=== PATIENT | female | born 1945 | race Caucasian/White ===

== ENCOUNTER 2020-02-24 01:09 | Emergency (ER) | payer MEDICARE, SELFPAY ==
[2020-02-24 01:21] VITALS: BP 198/101; PULSE 80; RESP 16; O2SAT 99; BMI 25.0
[2020-02-24 03:15] VITALS: BP 132/75; PULSE 71; RESP 16; TEMP 36.7; O2SAT 99
== END 2020-02-24 03:15 | disposition left against medical advice (07) ==
PROVIDERS: Emergency Provider Emergency Medicine; PCP Family Medicine
DX: Z53.21 Procedure and treatment not carried out due to patient leaving prior to being seen by health care provider (principal); S61.214A Laceration without foreign body of right ring finger without damage to nail, initial encounter
CPT/HCPCS: 99281; 99282

== ENCOUNTER 2020-04-15 15:53 | Inpatient (IN) | payer MEDICARE, SELFPAY ==
[2020-04-15] VITALS (12 sets, daily range): BP systolic 157–179; BP diastolic 71–84; PULSE 65–83; RESP 16–20; TEMP 36.1–37.5; O2SAT 92–99; BMI 25.0; BMI 24.8
--- NOTE | 2020-04-15 16:15 | XR_ITS ---
PROCEDURE: XR HIP LT 2-3V W/PELVIS CLINICAL INDICATION: fall, pain COMPARISON: CT CT HIP LT WO CON from 04/15/2020 FINDINGS: There is an intertrochanteric left hip fracture with mild impaction of the fracture fragments and mild coxa varum. No evidence of dislocation. IMPRESSION: Intertrochanteric left hip fracture with coxa varum Dictated b Ayaan Sun MD 04/15/2020 22:45 Ayaan Sun MD in [facility] 04/15/2020 22:45
--- NOTE | 2020-04-15 16:15 | PC.NURSE ---
rad notified of xray order, spoke with geoff
[2020-04-15 16:25] LABS: Chloride 105 mmol/L (98-107); Potassium 3.7 mmoL/L (3.5-5.1); Sodium 142 mmol/L (136-145)
[2020-04-15 16:28] LABS: Alanine Aminotransferase 20 U/L (12-78); Albumin Level 4.3 g/dl (3.5-5.0); Albumin/Globulin Ratio 1.4 (1.1-1.8); Alkaline Phosphatase 85 U/L (38-126); Anion Gap 14.7 mEq/L (5-15); Aspartate Amino Transferase 27 U/L (14-36); Bilirubin,Total 0.7 mg/dl (0.2-1.3); Blood Urea Nitrogen 11 mg/dl (7-17); Calcium 10.6 mg/dl (8.4-10.2); Carbon Dioxide 26 mmol/L (22.0-30.0); Creatinine Clearance Estimated 57 mL/min (50-200); Estimated Glomerular Filt Rate 98 ml/min (>60); GFR (African American) 119 ML/MIN (>60); Globulin 3.1 g/dL (1.3-3.2); Glucose 130 mg/dl (74-100); Total Protein,Serum 7.4 g/dl (6.3-8.2)
[2020-04-15 16:33] LABS: Basophils % 0.5 % (0.1-2.0); Eosinophils # 0.1 K/mm3 (0.0-0.4); Eosinophils % 2.1 % (0.1-12.0); Hematocrit 43.6 % (37.0-47.0); Hemoglobin 15.7 g/dL (12.2-16.2); Mean Corpuscular Hemoglobin 33.2 pg (27.0-31.2); Mean Corpuscular Volume 92.2 fl (81-99); Monocytes # 0.4 K/mm3 (0.1-1.0); Monocytes % 6.2 % (1.7-9.3); Neutrophils # 4.2 K/mm3 (1.8-7.8); Neutrophils % 74.2 % (37.0-80.0); Platelet Count 199 K/mm3 (142-424); Red Blood Count 4.72 M/mm3 (4.20-5.40); Red Cell Distribution Width 12.7 % (11.5-17.5); White Blood Count 5.6 K/mm3 (4.8-10.8)
--- NOTE | 2020-04-15 16:36 | PC.NURSE ---
Addendum entered by Melany Barton, EMT 04/15/20 16:38: Pt to rad Original Note: rad at BS for portable xray
--- NOTE | 2020-04-15 16:51 | PC.NURSE ---
Pt returned from rad
--- NOTE | 2020-04-15 17:11 | CT_ITS ---
PROCEDURE: CT HIP LT WO CON CLINICAL HISTORY: fall, hip pain Posttraumatic pain COMPARISON: No exams were available for comparison TECHNIQUE: Axial images obtained with sagittal and coronal reformats. All CT scans at the facility use one or more dose reduction, viz: automated exposure control, ma/kV adjustment per patient size (including targeted exams where dose is matched to indication, i.e. head), or iterative reconstruction technique. FINDINGS: There is a left comminuted intertrochanteric fracture with 10 mm impaction along the medial margin with moderate varus angulation. There is mild comminuted extension fracture to the greater trochanter with 5 mm displacement of a 10 mm posterior cortical fragment. The femoral head is located. There is diverticulosis of the sigmoid colon. IMPRESSION: Intertrochanteric fracture of the left proximal femur as described above. Dictated b Ayaan Sun MD 04/16/2020 07:05 Ayaan Sun MD in [facility] 04/16/2020 07:05
--- NOTE | 2020-04-15 17:11 | PC.NURSE ---
ER gave verbal order for CT of L hip, notified rad of new orders on pt
--- NOTE | 2020-04-15 17:26 | PC.NURSE ---
Pt to rad by rishabh
--- NOTE | 2020-04-15 17:57 | HMH.EDFALL ---
ED Disposition Clinical Impression: Hip fracture, Intertrochanteric fracture of left hip Disposition: Admitted as Observation Condition on Discharge: Good Instructions: How to Prevent Falls Referrals: Charli Olivares MD [Primary Care Provider] - - Critical Care Critical Care Time: No Attestation: On 04/15/20, the high probability of a clinically significant, sudden or life threatening deterioration of the following system(s) required my full and direct attention, intervention and personal management. The time I documented below is in addition to time spent performing reported procedures but includes the following listed in this critical care notation. Medical Decision Making - Medical Records Medical records reviewed: Yes: I reviewed the patient's medical records. - Aldo Inquiry Pt receiving controlled substance: No Vital Signs: 04/15/20 15:53 04/15/20 17:03 04/15/20 17:58 Temperature 99.5 F Temperature Source Oral Pulse Rate [Left Radial] 83 67 65 Respiratory Rate 20 Blood Pressure [Left Arm] 179/83 H 170/83 H 157/73 H Blood Pressure Mean [Left Arm] 115 112 101 Blood Pressure Source [Left Arm] Automatic Cuff Automatic Cuff Automatic Cuff Blood Pressure Position [Left Arm] Sitting Sitting Sitting 02 Sat by Pulse Oximetry 99 98 97 Oxygen Delivery Method Room Air Room Air Nasal Cannula Oxygen Flow Rate (LPM) 2 04/15/20 18:00 Temperature Temperature Source Pulse Rate [Left Radial] Respiratory Rate Blood Pressure [Left Arm] Blood Pressure Mean [Left Arm] Blood Pressure Source [Left Arm] Blood Pressure Position [Left Arm] 02 Sat by Pulse Oximetry 97 Oxygen Delivery Method Nasal Cannula Oxygen Flow Rate (LPM) 2 - Lab Data Lab results reviewed: Yes: I reviewed the patient's lab results. Lab Results 04/15/20 16:05: WBC 5.6, RBC 4.72, Hgb 15.7, Hct 43.6, MCV 92.2, MCH 33.2 H, MCHC 36.0 H, RDW 12.7, Plt Count 199, MPV 9.0, Neut % (Auto) 74.2, Lymph % (Auto) 17.0, Page % (Auto) 6.2, Eos % (Auto) 2.1, Baso % (Auto) 0.5, Neut # (Auto) 4.2, Lymph # (Auto) 1.0, Page # (Auto) 0.4, Eos # (Auto) 0.1, Baso # (Auto) 0.0 04/15/20 16:05: Sodium 142, Potassium 3.7, Chloride 105, Carbon Dioxide 26, Anion Gap 14.7, BUN 11, Creatinine 0.60, Estimated Creat Clear 57, Estimated GFR 98, Est GFR ( Amer) 119, Glucose 130 H, Calcium 10.6 H, Total Bilirubin 0.7, AST 27, ALT 20, Alkaline Phosphatase 85, Total Protein 7.4, Albumin 4.3, Globulin 3.1, Albumin/Globulin Ratio 1.4 Result diagrams: 04/15/20 16:05 04/15/20 16:05 Orders (Tests/Meds): ED MEDICATIONS Generic Name Dose Route Start Last Admin Trade Name Freq PRN Reason Stop Dose Admin Sodium Chloride 1,000 mls @ 999 mls/hr 04/15/20 16:15 04/15/20 16:16 Sod Chlor 0.9% 1000ml Bag IV 04/15/20 17:15 999 mls/hr .Q1H1M ZOHRA Administration Sodium Chloride 10 ml 04/15/20 17:21 04/15/20 17:29 Sodium Chloride 0.9% 10ml Vial IV 05/15/20 17:20 10 ml NEEDED PRN Administration to Dilute Lorazepam inj Discontinued Medications Generic Name Dose Route Start Last Admin Trade Name Freq PRN Reason Stop Dose Admin Hydromorphone HCl 1 mg 04/15/20 17:21 04/15/20 17:28 Dilaudid 2mg/Ml Syringe IV 04/15/20 17:22 1 mg ONCE ONE Administration Lorazepam 1 mg 04/15/20 17:21 04/15/20 17:28 Ativan 2mg/Ml Vial IV 04/15/20 17:22 1 mg ONCE ONE Administration Morphine Sulfate 4 mg 04/15/20 16:14 04/15/20 16:16 Morphine 4mg/Ml Syringe IV 04/15/20 16:15 4 mg ONCE ONE Administration Ondansetron HCl 4 mg 04/15/20 16:14 04/15/20 16:16 Zofran 4mg/2ml Vial IV 04/15/20 16:15 4 mg ONCE ONE Administration ORDERS Category Date Time Status CT hip LT wo con Stat Cat Scan 04/15/20 17:11 Taken XR hip LT 2-3V w/pelvis Stat Exams 04/15/20 16:15 Taken Full Resp Panel (COVID)(INPT) Routine Lab 04/15/20 18:03 Ordered Rapid Coronavirus-19 IgG/IgM Stat Lab 04/15/20 18:43 Ordered - Radiology
--- NOTE | 2020-04-15 17:59 | PC.NURSE ---
pt returned from rad.
--- NOTE | 2020-04-15 18:03 | PC.NURSE ---
ER gave verbal order for inpt covid test in anticipation of admission
--- NOTE | 2020-04-15 18:09 | PC.NURSE ---
notified lab of COVID test, stated they will come down to swab pt once she is for sure being admitted. notified ER MD, states he is waiting on CT report and then he will call to get pt admitted
--- NOTE | 2020-04-15 18:23 | PC.NURSE ---
pipe cleaning machine operator paging dr. amos
--- NOTE | 2020-04-15 18:26 | PC.NURSE ---
DENNIS APPLE speaking with Dr. Gale
--- NOTE | 2020-04-15 18:27 | PC.NURSE ---
folded towel machine operator paging Dr. Bajwa who is feed inspection supervisor for Dr. Olivares
--- NOTE | 2020-04-15 18:36 | PC.NURSE ---
1829- lab at to swab pt nose for covid test, per lab staff pt is refusing the nasal swab entered room to speak with pt about covid test pt states I don't want that thing in my nose . Pt continues to refuse covid nasal swab. notified ER , ER entered room to speak with pt, pt continues to refuse nasal swab. contacted tank house operator helper to notify her of pt refusing test, states she will contact [facility]. [phone]-tank house operator helper calls back states [facility] states to do IGG/IGM testing on pt and to inform pt that she must wear a mask at all times while in the facility.
--- NOTE | 2020-04-15 18:36 | PC.NURSE ---
DENNIS APPLE speaking with Dr. Bajwa who is insulation supervisor for Dr Olivares
--- NOTE | 2020-04-15 18:42 | PC.NURSE ---
housekeeper cleaning cooking gave bed assignment to room 202
--- NOTE | 2020-04-15 18:57 | PC.NURSE ---
pt informed of information from administration about covid testing, pt will not at this time agree to either testing. Pt was on the phone with pts daughter who is in the lobby. I spoke with pt daughter on the phone and explained the testing procedure and the information r/t testing from administration. Pt went out to switch out with pts daughter. Pt will not consent to either covid test at this time. Notified lab.
--- NOTE | 2020-04-15 19:02 | PC.NURSE ---
Pt's daughter at bedside at this time.
--- NOTE | 2020-04-15 19:03 | PC.NURSE ---
pt daughter at and requesting to speak with pt alone
--- NOTE | 2020-04-15 19:08 | PC.NURSE ---
shift change report given to gerardorn
--- NOTE | 2020-04-15 19:11 | PC.NURSE ---
called roundhouse supervisor and advised wht was going on. house called back and advised that since she had already gave us consent for treatment including blood work to go a head and run the igg/igm test per Radha Mazariegos.
--- NOTE | 2020-04-15 19:20 | PC.NURSE ---
Nurys and modesto spoke to patient. she finally consented to to covid nasal swab. called lab and they are coming down to get it.
[2020-04-15 19:32] LABS: Adenovirus,PCR Not Detected (NotDetected); Bordetella Pertussis Not Detected (NotDetected); Chlamydophila Pneumoniae, PCR Not Detected (NotDetected); Coronavirus 19, PCR Not Detected (NotDetected); Coronavirus 229E Not Detected (NotDetected); Coronavirus NL63 Not Detected (NotDetected); Coronavirus OC43 Not Detected (NotDetected); Coronovirus HKU1,PCR Not Detected (NotDetected); Human Metapneumovirus Not Detected (NotDetected); Influenza A, PCR Not Detected (NotDetected); Influenza AH1, 2009 Not Detected (NotDetected); Influenza AH1, PCR Not Detected (NotDetected); Influenza AH3,PCR Not Detected (NotDetected); Influenza B, PCR Not Detected (NotDetected); Mycoplasma Pneumoniae, PCR Not Detected (NotDetected); Parainfluenza 1, PCR Not Detected (NotDetected); Parainfluenza 2, PCR Not Detected (NotDetected); Parainfluenza 3, PCR Not Detected (NotDetected); Parainfluenza 4, PCR Not Detected (NotDetected); Respiratory Syncytial Virus Not Detected (NotDetected); Rhinovirus/Enterovirus Not Detected (NotDetected)
[2020-04-15 19:40] LABS: Coronavirus 19 IgG Antibody Negative (Negative); Coronavirus 19 IgM Antibody Negative (Negative)
--- NOTE | 2020-04-15 21:08 | PC.NURSE ---
pt is taken to the floor at this time via stretcher.
--- NOTE | 2020-04-15 21:09 | PC.NURSE ---
patient up to floor via stretcher.
[2020-04-16] VITALS (22 sets, daily range): BP systolic 109–169; BP diastolic 43–78; PULSE 55–76; RESP 13–29; TEMP 36.6–43; O2SAT 92–98
--- NOTE | 2020-04-16 02:53 | PC.NURSE ---
A&OX4. PT HAS TOLERATED ROOM AIR WELL THROUGHOUT SHIFT. RESPIRATIONS REGULAR AND UNLABORED. LUNG SOUNDS BILATERALLY CLEAR. NO COUGH NOTED. NO EDEMA NOTED. +2 PULSES NOTED THROUGHOUT. HAND CRITICAL CARE CNS EQUAL. PT HAS REMAINED NPO SINCE MIDNIGHT. ACTIVE BOWEL SOUNDS HEARD IN ALL 4 QUADRANTS. SOFT AND NONTENDER ABDOMEN. NO BM THUS FAR. NO REPORTS OF NAUSEA OR PAIN THUS FAR. PT SHIFTS INDEPENDENTLY IN BED. PT IS RESTING IN BED AT THIS TIME. CALL LIGHT WITHIN REACH. BED IN LOWEST POSITION. VSS. NO CONCERNS AT THIS TIME. WILL CONTINUE TO MONITOR.
--- NOTE | 2020-04-16 06:38 | PC.NURSE ---
WHEN PT FIRST GOT TO THE FLOOR, HER ATORVASTATIN WAS DUE. WENT TO ADMINISTER MED AND PT STATED SHE TAKES HER ATORVASTATIN AND BLOOD PRESSURE MEDICINE TOGETHER ALWAYS AND WOULDN'T TAKE ONE WITHOUT THE OTHER. SHE ALSO STATED SHE THOUGHT SHE HAD ALREADY TAKEN HER ATORVASTATIN. I EXPLAINED TO THE PT THAT MEDICATIONS MAY BE ORDERED A LITTLE DIFFERENTLY HERE THAN WHAT SHE'S USE TO AT HOME, BUT TO DISCUSS IT WITH PHARMACY AND HER MD WHEN THEY CAME AROUND THIS AM. I ALSO EXPLAINED EVERYTHING ADMINISTERED TO HER WHILE UNDER OUR CARE IS SCANNED OFF IN THE NOV. I REASSURED HER THAT IT HADN'T BEEN GIVEN AND SO DID HER DAUGHTER. AFTER A FEW MINUTES OF THINKING ABOUT EVERYTHING, PT WAS AGREEABLE AND TOOK THE MEDICATION. PT TOLERATED WELL. PT STATED SHE NEEDED TO USE THE RESTROOM AND AGREED TO TRY A PURWICK TO TRY TO KEEP FROM MOVING SO MUCH AND INCREASING HER PAIN. CLEAR YELLOW URINE NOTED IN SUCTION CANISTER WITH NO KINKS. PT STATED SHE JUST COULDN'T GO COMPLETELY SO; WE OFFERED TO TRY THE BEDPAN. PT WAS SUCCESSFUL AND TOLERATED IT WELL. ROUNDED ON PT EVERY 2 HOURS. PT RESTED WELL UNTIL LATER IN THE AM. PT DIDN'T REPORT ANY PAIN UNTIL AROUND 5:30. PT STATES NO PAIN EXCEPT WHEN MOVING. STATING IT WAS TOLERABLE AND SHE DIDN'T WANT ANYTHING AT THIS TIME. I ENCOURAGED HER TO RING OUT IF SHE CHANGED HER MIND AND I WOULD BE BACK TO CHECK ON HER PERIODICALLY. I OFFERED TO ADJUST THE PATIENT SEVERAL TIMES THROUGHOUT THE SHIFT TO TRY TO HELP MAKE HER A LITTLE MORE COMFORTABLE. SHE AGREED SEVERAL TIMES, BUT NOTHING SEEMED TO HELP MUCH. DAUGHTER AT BEDSIDE NOW.
--- NOTE | 2020-04-16 07:37 | HMH.PHAVTE ---
[facility] Pharmacy VTE Monitoring - Patient Demographics Admission date: 04/15/20 Report Date: 04/16/20 Time: 07:37 Allergies/Adverse Reactions: Patient Allergies benazepril [BENAZEPRIL] Allergy (Unknown, Verified 04/15/20 17:22) angioedema Height: 1.7 m Weight: 71.894 kg Patient Problems: Current Active Problems Hip fracture (Acute) Intertrochanteric fracture of left hip (Acute) - VTE Risk Labs: VTE Related Lab Results Hgb 15.7 g/dL (12.2-16.2) 04/15/20 16:05 Hct 43.6 % (37.0-47.0) 04/15/20 16:05 Plt Count 199 K/mm3 (142-424) 04/15/20 16:05 BUN 11 mg/dl (7-17) 04/15/20 16:05 Creatinine 0.60 mg/dl (0.52-1.04) 04/15/20 16:05 Estimated Creat Clear 57 mL/min (50-200) 04/15/20 16:05 Was VTE Risk Assessment Performed: Yes VTE Score: 2 VTE Risk Level: Very Low Risk - Prophylaxis VTE Prophylaxis Ordered?: Yes Types of VTE Prophylaxis: TEDS Knee High Location of Applied Device: Bilateral Lower Extremeties - VTE Diagnosis Confirmed Treatment or plan recommended: Continue Current Treatment
--- NOTE | 2020-04-16 08:08 | XR_ITS ---
PROCEDURE: XR CHEST PORTABLE CLINICAL HISTORY: preop COMPARISON: CR CXR1 CHEST-PORTABLE from 02/04/2016 FINDINGS: The cardiomediastinal silhouette and pulmonary vascularity are within normal limits. The lungs are clear without infiltrates, suspicious nodules, or pleural effusions. There may be minimal discoid atelectasis at the left costophrenic angle. No acute bony abnormalities. There is minor diffuse dextroscoliotic curvature of the lower thoracic spine. IMPRESSION: Question minimal left basilar atelectasis otherwise no acute pathology identified Dictated Dr. Truman Mariscal MD 04/16/2020 08:43 Dr. Truman Vuong MD in [place] 04/16/2020 08:43
--- NOTE | 2020-04-16 08:09 | HMH.HP ---
*Admission Date: 04/15/20 <Isatu Sims 04/16/20 08:25> *Chief complaint: Left hip fracture after a fall <Isatu Sims 04/16/20 08:25> *History of present illness: Ms Venegas is a 74 year old male with a history of hypertension, hypercholesteremia, and arthritis who presented to [facility] emergency room with hip pain secondary to a fall. She states she walked into her house from the garden down a step when her left leg gave way resulting in a fall. She landed on her left side and then complained of left severe Hip pain. Her family was present and had her brought to [facility] via EMS. She continued with the left hip and groin pain. With evaluation in the emergency room she was found to have an entero-trochanteric fracture of the left proximal femur. She received a liter of IV fluids, and hydromorphine, lorazepam, and morphine, for her pain. She was then admitted after consultation with Dr. Jj for management of her hip fracture. This a.m. patient continues to have left hip pain when she moves. She states she did sleep some. EKG and chest x-ray have been ordered for preop eval. <Isatu Sims 04/16/20 08:25> [facility] History Medical History: Reports:: Hyperlipidemia, Hypertension Denies:: Cancer, Diabetes Mellitus Type 1, Diabetes Mellitus Type 2, Internal Pacemaker, MRSA <Isatu Sims 04/16/20 08:25> *Have you ever received a pneumonia vaccine?: No <Isatu Sims 04/16/20 08:25> *Have you received a flu vaccine this season?: No <Isatu Sims 04/16/20 08:25> Other Medical History: Reports: Arthritis <Isatu Sims 04/16/20 08:25> Laterality Cases: Bilateral: Tonsillectomy <Isatu Sims 04/16/20 08:25> Other Surgeries: Yes: Hernia Repair. No: Pacemaker <Isatu Sims 04/16/20 08:25> Amputation: No <Isatu Sims 04/16/20 08:25> Fractures: No <Isatu Sims 04/16/20 08:25> - *Social History Last grade of school completed: Advanced degree <Isatu Sims 04/16/20 08:25> Alcohol Intake: never <Isatu Sims 04/16/20 08:25> *Occupational Status:: retired <Isatu Sims 04/16/20 08:25> Housing: house <Isatu Sims 04/16/20 08:25> Household Members: spouse, children <Isatu Sims 04/16/20 08:25> *Travel in the last 8 weeks: None <Isatu Sims 04/16/20 08:25> Family Hx:: Heart Attack, Hyperlipidemia, Hypertension <Isatu Sims 04/16/20 08:25> Review of Systems - Constitutional Denies body ache(s), Denies chills, Denies headache(s) <Isatu Sims 04/16/20 08:25> - Eyes Denies change in vision <Isatu Sims 04/16/20 08:25> - ENT Denies ear pain, Denies sore throat <Isatu Sims 04/16/20 08:25> - *Cardiovascular Denies chest pain, Denies shortness of breath, Denies generalized swelling, Denies irregular heart rhythm, Denies rapid, pounding, or irregular heartbeat <Isatu Sims 04/16/20 08:25> - *Respiratory Denies chest congestion, Denies cough, Denies shortness of breath <Isatu Sims 04/16/20 08:25> - *Gastrointestinal Denies abdominal pain, Denies change in stools, Denies constipation, Denies heartburn, Denies vomiting blood, Denies loose stools, Denies black, tarry stools, Denies nausea, Denies vomiting <Isatu Sims 04/16/20 08:25> - *Genitourinary Denies difficulty urinating <Isatu Sims 04/16/20 08:25> - *Musculoskeletal Reports joint pain <Isatu Sims 04/16/20 08:25> - *Neurologic Denies confusion, Denies seizure-like activity, Denies dizziness, Denies frequent falls, Denies headache(s) <BethanyIsatu - 04/16/20 08:25> Meds Home Medications Medication Instructions Recorded Confirmed Type Amlodipine Besylate [Amlodipine 5 mg PO DAILY 04/15/20 04/15/20 History 5mg tab] Atorvastatin Calcium [Lipitor 10mg 10 mg PO HS 04/15/20 04/15/20 History Tablet] Cholecalciferol (Vitamin D3) 1,000 unit PO DAILY 04/15/20 04/16/20 History [Vitamin D3 1,000 Unit Cap] <Normabe
--- NOTE | 2020-04-16 08:53 | ECG_ITS ---
APPROVED REPORT Exam: Resting ECG HR:66 bpm ECG Measurements Heart Rate 66 AXES AK 176 P 45 QRSd 78 QRS 39 QT 394 T 20 QTc 413 <Conclusion> Normal sinus rhythm Poor R Wave Progression Abnormal ECG Electronically signed by : Sami Mccormick, 04/16/2020 14:58:05
[2020-04-16 09:03] LABS: Basophils % 0.2 % (0.1-2.0); Chloride 105 mmol/L (98-107); Eosinophils % 0.3 % (0.1-12.0); Hematocrit 40.4 % (37.0-47.0); Hemoglobin 14.2 g/dL (12.2-16.2); Lymphocytes # 0.8 K/mm3 (0.7-4.5); Lymphocytes % 9.5 % (10-50); Mean Corpuscular HGB Conc 35.2 g/dL (31.8-35.4); Mean Corpuscular Hemoglobin 33.5 pg (27.0-31.2); Mean Corpuscular Volume 95.3 fl (81-99); Mean Platelet Volume 8.9 fl (7.4-10.4); Monocytes # 0.6 K/mm3 (0.1-1.0); Monocytes % 7.8 % (1.7-9.3); Neutrophils # 6.6 K/mm3 (1.8-7.8); Neutrophils % 82.2 % (37.0-80.0); Platelet Count 171 K/mm3 (142-424); Red Blood Count 4.24 M/mm3 (4.20-5.40); Red Cell Distribution Width 12.9 % (11.5-17.5); Sodium 138 mmol/L (136-145)
[2020-04-16 09:04] LABS: Potassium 4.7 mmoL/L (3.5-5.1)
[2020-04-16 09:06] LABS: Alanine Aminotransferase 15 U/L (12-78); Alkaline Phosphatase 67 U/L (38-126); Aspartate Amino Transferase 23 U/L (14-36); Bilirubin,Total 1.3 mg/dl (0.2-1.3); Blood Urea Nitrogen 11 mg/dl (7-17); Creatinine Clearance Estimated 57 mL/min (50-200); Estimated Glomerular Filt Rate 98 ml/min (>60); GFR (African American) 119 ML/MIN (>60)
[2020-04-16 09:07] LABS: Albumin Level 3.7 g/dl (3.5-5.0); Albumin/Globulin Ratio 1.3 (1.1-1.8); Anion Gap 9.7 mEq/L (5-15); Carbon Dioxide 28 mmol/L (22.0-30.0); Globulin 2.9 g/dL (1.3-3.2); Glucose 120 mg/dl (74-100); Total Protein,Serum 6.6 g/dl (6.3-8.2)
--- NOTE | 2020-04-16 09:45 | HMH.ORTHOCON ---
*Admission Date: 04/15/20 *Reason for consult:: L hip fracture *History of present illness: 74yo F admitted overnight through the ED after a fall at home. She was coming in from the garden and her left knee gave way, causing her to fall onto the left side. She had immediate pain in the left hip and could not stand. X-rays revealed a L intertrochanteric femur fracture. She has never injured or had surgery on this hip before. She has occasional pain and giving way of the left knee at baseline; no previous surgeries on this knee. No open wounds, ecchymosis reported on the L hip. She denies numbness or tingling in the LLE. Currently her only complaint is L hip pain; no fevers/chills, no chest pain or shortness of breath. She has an underlying history of HTN and HL, no previous ID/CVA or h/o DVT/PE reported. Previous surgeries include tonsillectomy and hernia repair. She is allergic to benazepril; home medications are: amlodipine, atorvastatin, vitamin D3. She lives at home with her and daughter in a 1-level home, though there are a few rooms that have 1-2 steps; there are 3 steps to get into the home. She wishes to be discharged home with home health after surgery if possible. Pre-op labs, EKG, CXR were within acceptable limits and she has been cleared by Dr. Olivares for surgery. Covid-19 nasal swab is negative. [facility] History I have reviewed the patient's past medical history: Yes Medical History: Reports:: Hyperlipidemia, Hypertension Denies:: Cancer, Diabetes Mellitus Type 1, Diabetes Mellitus Type 2, Internal Pacemaker, MRSA *Have you ever received a pneumonia vaccine?: No *Have you received a flu vaccine this season?: No Other Medical History: Reports: Arthritis Laterality Cases: Bilateral: Tonsillectomy Other Surgeries: Yes: Hernia Repair. No: Pacemaker Amputation: No Fractures: No - *Social History Last grade of school completed: Advanced degree Alcohol Intake: never *Occupational Status:: retired Housing: house Household Members: spouse, children *Travel in the last 8 weeks: None Family Hx:: Heart Attack, Hyperlipidemia, Hypertension Review of Systems - Review of Systems Review of systems:: pertinent systems reviewed and negative unless documented below - Constitutional Denies chills, Denies fever(s) - Eyes Denies blurry vision - ENT Denies dizziness - *Cardiovascular Denies chest pain, Denies shortness of breath - *Respiratory Denies cough, Denies shortness of breath - *Gastrointestinal Denies abdominal pain - *Musculoskeletal Reports joint pain, Denies numbness, Denies tingling - *Neurologic Denies confusion, Denies seizure-like activity, Denies dizziness, Denies frequent falls, Denies headache(s) Meds Home Medications Medication Instructions Recorded Confirmed Type Amlodipine Besylate [Amlodipine 5 mg PO DAILY 04/15/20 04/15/20 History 5mg tab] Atorvastatin Calcium [Lipitor 10mg 10 mg PO HS 04/15/20 04/15/20 History Tablet] Cholecalciferol (Vitamin D3) 1,000 unit PO DAILY 04/15/20 04/16/20 History [Vitamin D3 1,000 Unit Cap] Allergies Allergy/AdvReac Type Severity Reaction Status Date / Time benazepril [BENAZEPRIL] Allergy Unknown angioedema Verified 04/15/20 17:22 Exam Vital signs and Labs for Last 24 Hours: Temp Pulse Resp BP Pulse Ox 98.2 F 74 19 148/64 H 98 04/16/20 08:00 04/16/20 08:00 04/16/20 08:00 04/16/20 08:00 04/16/20 08:00 Laboratory Results - last 24 hr 04/15/20 16:05: WBC 5.6, RBC 4.72, Hgb 15.7, Hct 43.6, MCV 92.2, MCH 33.2 H, MCHC 36.0 H, RDW 12.7, Plt Count 199, MPV 9.0, Neut % (Auto) 74.2, Lymph % (Auto) 17.0, Dauphin % (Auto) 6.2, Eos % (Auto) 2.1, Baso % (Auto) 0.5, Neut # (Auto) 4.2, Lymph # (Auto) 1.0, Dauphin # (Auto) 0.4, Eos # (Auto) 0.1, Baso # (Auto) 0.0 04/15/20 16:05: Sodium 142, Potassium 3.7, Chloride 105, Carbon Dioxide 26, Anion Gap 14.7, BUN 11, Creatinine 0.60, Estimated Creat Clear 57, Estimated GFR 98, Est GFR ( Amer) 1
--- NOTE | 2020-04-16 09:52 | PC.NURSE ---
Pt down to surgery at this time.
--- NOTE | 2020-04-16 10:35 | HMH.PHAINT ---
MEDICATION RECONCILIATION COMPLETED ON PATIENT USING EXTERNAL FILL HISTORY FROM PHARMACY AND LIST FROM [facility] OFFICE. -REECE SWARTZD
[2020-04-16 11:21] LABS: Microscopic,Cath URINE MICROSCOPIC (MICROSCOPIC)
[2020-04-16 11:22] LABS: Appearance,Urine/Cath TURBID (Clear); Bilirubin,Cath Negative (Negative); Blood, Urine/Cath TRACE-I (Negative); Color,Urine/Cath YELLOW (Yellow); Glucose,Urine/Cath (UA) Negative (Negative); Ketones,Urine/Cath 1+ (Negative); Leukocyte Esterase,Cath Negative (Negative); Nitrate,Cath Negative (Negative); Protein,Urine/Cath Negative (Negative)
[2020-04-16 11:23] LABS: Calcium 9.3 mg/dl (8.4-10.2)
[2020-04-16 11:38] LABS: Amorphous Sediment,Ur/Cath 2+ /lpf; Bacteria,Urine/Cath 3+ /lpf; Squamous Epithelial Ur./Cath Occasional #/hpf (0-5)
--- NOTE | 2020-04-16 11:40 | HMH.ANESCL ---
[facility] Anesthesia Checklist - Patient Identification Patient Identification: Arm Band - Structural Data Admitted From: Inpatient Planned Operative Procedure/s: left hip gamma nail Consent for Planned Operative Procedure(s) Verified: Yes Verified Documents: Surgical Consent, History and Physical - NPO Status Verified Time NPO: 00:00 - Additional verifications Anesthesia Reactions: No - Airway Assessment C-Spine Mobility Assessed: Yes (mp2) TMJ Mobility Assessed: Yes Dentition: Good Dentition - Neurological Assessment Level of Consciousness: Awake, Alert - Anesthesia Plan Anesthesia Risk discussed: Yes Anesthesia Plan: Verified ASA Class: II Anesthesia Type: MAC w/Spinal (Discussed at length with pt about risks/benefits of SAB vs GA. Pt verbalizes understanding of SAB/MAC) [facility] History Medical History: Reports:: Hyperlipidemia, Hypertension Denies:: Cancer, Diabetes Mellitus Type 1, Diabetes Mellitus Type 2, Internal Pacemaker, MRSA *Have you ever received a pneumonia vaccine?: No *Have you received a flu vaccine this season?: No Other Medical History: Reports: Arthritis Anesthesia experience/problems:: nac Laterality Cases: Bilateral: Tonsillectomy Other Surgeries: Yes: Hernia Repair. No: Pacemaker Amputation: No Fractures: No - *Social History Last grade of school completed: Advanced degree Alcohol Intake: never Substance Use Type: denies use *Occupational Status:: retired Housing: house Household Members: spouse, children *Travel in the last 8 weeks: None Family Hx:: Heart Attack, Hyperlipidemia, Hypertension
--- NOTE | 2020-04-16 12:14 | XR_ITS ---
PROCEDURE: XR HIP LT 2-3V W/PELVIS CLINICAL INDICATION: GAMMA NAIL IN OR COMPARISON: No exams were available for comparison FINDINGS: Fluoro time: 3 minutes and 4 seconds Status post ORIF intertrochanteric fracture. Gamma nail with short intramedullary harjinder placed stabilizing the fracture fragments which appear to be in good alignment IMPRESSION: Good alignment status post ORIF left intertrochanteric fracture Dictated b Ayaan Sun MD 04/16/2020 13:00 Ayaan Sun MD in [place] 04/16/2020 13:00
--- NOTE | 2020-04-16 12:41 | HMH.ANESI ---
[facility] Anesthesia Record Part I Intake, IV Amount: 1,000 Estimated blood loss (mL): 50 Urine output (mL): 100 Blood Pressure: 111/52 SaO2: 95 Pulse Rate: 59 Respiratory Rate: 16 Temperature: 98 F Patient is:: Drowsy, Stable Stable to PACU at:: 12:35
--- NOTE | 2020-04-16 13:45 | HMH.OPNOTE ---
Date of procedure: 04/16/20 Pre-op Diagnosis:: intertrochanteric fracture L femur Post-op Diagnosis:: intertrochanteric fracture L femur Procedure performed:: intramedullary nail L femur Surgeon:: Carina Yao MD [employer]mo Project Manager(s):: Lilibeth Grayson STAFFING ADMINISTRATOR:: Vic Medina Anesthesia: MAC, spinal Estimated blood loss (mL): 50 Clinical Note:: 74yo F admitted overnight through the ED after a fall at home. She was coming in from the garden and her left knee gave way, causing her to fall onto the left side. She had immediate pain in the left hip and could not stand. X-rays revealed a L intertrochanteric femur fracture. She has never injured or had surgery on this hip before. She has occasional pain and giving way of the left knee at baseline; no previous surgeries on this knee. No open wounds, ecchymosis reported on the L hip. She denies numbness or tingling in the LLE. Currently her only complaint is L hip pain; no fevers/chills, no chest pain or shortness of breath. She has an underlying history of HTN and HL, no previous OH/CVA or h/o DVT/PE reported. Previous surgeries include tonsillectomy and hernia repair. She is allergic to benazepril; home medications are: amlodipine, atorvastatin, vitamin D3. She lives at home with her and daughter in a 1-level home, though there are a few rooms that have 1-2 steps; there are 3 steps to get into the home. She wishes to be discharged home with home health after surgery if possible. Pre-op labs, EKG, CXR were within acceptable limits and she has been cleared by Dr. Olivares for surgery. Covid-19 nasal swab is negative. I discussed treatment options with the patient, both operative and non-operative, with their associated risks and benefits. She is relatively healthy and has been deemed low and acceptable risk for surgery by her PCP, and I recommend surgical intervention at this time. I specifically recommend intramedullary nail of the L femur, and this procedure, the expected perioperative course and recovery period were discussed with the patient in detail. We discussed the risks of surgery, including but not limited to: bleeding, infection, neurovascular damage, intraoperative fracture, hardware failure, loss of reduction, malunion, nonunion, leg length discrepancy, persistent pain/weakness/limp despite surgery, possible need for cane/walker use after surgery, and the possibility of further surgery in the future. The patient vocalized understanding and provided informed consent for the procedure. Operative findings:: [place] gamma nail 11 x 180mm, 125 degree 10.5 x 100mm lag screw 5 x 35mm distal interlocking screw Operative note:: The patient was identified in preoperative holding and the L hip signed by myself. The patient was then taken to the operating room where spinal anesthetic administered and 1g cefazolin was infused. The patient was then transferred to the fracture table and sedated intravenously for the procedure. The L leg was secured to the foot plate of the fracture table and the R leg placed in an extended/lowered position, scissoring the legs so that the R leg was well protected but out of the way of both the L hip and C-arm. Timeout was performed, identifying the correct patient, correct procedure and correct site. Next the L hip fracture was visualized under fluoro and closed reduction performed using the fracture table and a combination of hip adduction, internal rotation and longitudinal traction. The L comminuted intertrochanteric femur fracture was reduced into acceptable alignment and then the hip prepped and draped in the usual sterile fashion for a femoral intramedullary nail procedure. The procedure was begun by using a free guide pin held over the L hip to localize the level of the greater trochanter. Approximately 3cm proximal to this, a longitudinal incision was made on the lateral aspect of the hip approximately 3 cm long. The guidepin was placed over the tip of the greater trochanter an
--- NOTE | 2020-04-16 13:46 | SUR.PHASEI ---
Asked patient multiple times about her pain level and if she was able to wiggle her toes. Patient either denied pain or stated she didn't know if she was having pain, each time she was asked. Although, she moaned loudly almost continually while in PACU.
--- NOTE | 2020-04-16 14:04 | HMH.ANESII ---
[facility] Anesthesia Record Part II Discharge Time: 13:15 Destination: Medical Surgical Department PACU nurse assessment reviewed?: Yes Patient Condition:: Good Anesthesia Complications:: None Swallowing reflex intact?: Yes Cyanosis?: No Blood Pressure: 123/66 Pulse Rate: 58 Temperature: 98.5 F Mental Status: Alert & Oriented Pain level:: 0 Nausea and/or vomitting:: None Intake, IV Amount: 0
--- NOTE | 2020-04-16 19:27 | PC.NURSE ---
Pt alert and oriented and able to make needs known. Pt has c/o of being uncomfortable intermittently and stated she was unsure if repositioning helped or anything helped at all. Pt has refused to eat or drink much this evening. VS have been stable. Pt has rested some this evening. Scud in place to R leg.Dsg to l hip is cdi. Family have been at bedside intermittently. CB in reach. Has taken pain med per mar with education given on if needed, as pt stated it would just mask the pain. Did also call pt to see pt and they stated it could possibly be tomorrow if unable to make it this evening. Did make pt and daughter aware of this. Peter stated she didn't need an abductor pillow since she didn't have a total hip replacement. Noted
[2020-04-17] VITALS: BP 121/66; PULSE 74; RESP 18; TEMP 37.5; O2SAT 96
[2020-04-17 04:00] VITALS: BP 152/70; PULSE 71; RESP 20; TEMP 37.2; O2SAT 93
[2020-04-17 05:00] VITALS: BMI 24.8
--- NOTE | 2020-04-17 06:45 | PC.NURSE ---
A&OX4. PT HAS TOLERATED ROOM AIR WELL THROUGHOUT SHIFT. RESPIRATIONS REGULAR AND UNLABORED. LUNG SOUNDS BILATERALLY CLEAR. NO COUGH NOTED. EDUCATED THE PT ON HOW TO USE INCENTIVE SPIROMETER AND ENCOURAGED TO USE 10 TIMES EVERY HOUR WHILE AWAKE. PT'S BEST NOTED AT 1500. PT TOLERATED WELL. ACTIVE BOWEL SOUNDS HEARD IN ALL 4 QUADRANTS. SOFT AND NONTENDER ABDOMEN. NO BM THIS SHIFT. NEVAREZ IN PLACE WITH CLEAR YELLOW URINE NOTED. NO KINKS NOTED. HEART RATE REGULAR. +2 PULSES NOTED THROUGHOUT. DRESSING NOTED TO L HIP R/T L NAIL SURGERY. DRESSING CDI. PT SLEPT WELL THE FIRST HALF OF THE SHIFT, BUT HAS BEEN RESTLESS THE LAST FEW HOURS. PT HAS BEEN REPOSITIONED SEVERAL TIMES, BUT STATES NOTHING IS COMFORTABLE TO HER. SHE STATES SHE IS TIRED OF LYING IN THE BED AND NOT DOING ANYTHING. I EXPLAINED PT WOULD BE UP TO EVALUATE HER IN A FEW HOURS AND SEE HOW SHE AMBULATES. SHE HAS ALSO STATED SHE HASN'T SEEN A DOCTOR SINCE SHE'S BEEN HERE. I EXPLAINED THAT DR AVERY AND DR PEREZ HAVE SEEN HER. I EXPLAINED THEIR PLAN OF CARE FOR HER, BUT SHE STATES DOESN'T REMEMBER THEM AT ALL. I HAVE ENCOURAGED THE PT TO DRINK AND EAT. SHE HASN'T ATE MUCH THROUGHOUT THE SHIFT, BUT SHE HAS DRANK SOME WATER. PT HAS BEEN OFFERED PAIN MEDICATION SEVERAL TIMES THROUGHOUT SHIFT AND SHE STATED SHE DOESN'T WANT TO TAKE ANYTHING. SHE AGREED TO TAKE MORPHINE 2MG ONCE FOR A PAIN OF 8/10. ON REASSESSMENT, PT WAS RESTING W HER EYES CLOSED. SCUD IN PLACE TO R LEG. PT RECEIVED CEFAZOLIN TWICE THIS SHIFT AND WAS EDUCATED ON THE BENEFITS OF RECEIVING IT. SHE TOLERATED IT WELL. PT IS CURRENTLY LAYING IN HER BED EATING BREAKFAST. BED IN LOWEST POSITION. CALL LIGHT WITHIN REACH. VSS. WILL CONTINUE TO MONITOR.
[2020-04-17 07:27] LABS: Basophils % 0.1 % (0.1-2.0); Eosinophils % 0.2 % (0.1-12.0); Hematocrit 39.8 % (37.0-47.0); Hemoglobin 13.9 g/dL (12.2-16.2); Lymphocytes # 0.7 K/mm3 (0.7-4.5); Lymphocytes % 7.6 % (10-50); Mean Corpuscular Hemoglobin 33.1 pg (27.0-31.2); Mean Corpuscular Volume 94.6 fl (81-99); Mean Platelet Volume 9.3 fl (7.4-10.4); Monocytes # 0.7 K/mm3 (0.1-1.0); Monocytes % 6.9 % (1.7-9.3); Neutrophils # 8.3 K/mm3 (1.8-7.8); Neutrophils % 85.1 % (37.0-80.0); Platelet Count 150 K/mm3 (142-424); Red Cell Distribution Width 12.9 % (11.5-17.5); White Blood Count 9.8 K/mm3 (4.8-10.8)
[2020-04-17 07:31] LABS: Chloride 104 mmol/L (98-107); Potassium 4.3 mmoL/L (3.5-5.1); Sodium 136 mmol/L (136-145)
[2020-04-17 07:33] LABS: Alanine Aminotransferase 16 U/L (12-78); Alkaline Phosphatase 64 U/L (38-126); Aspartate Amino Transferase 24 U/L (14-36); Bilirubin,Total 1.5 mg/dl (0.2-1.3); Blood Urea Nitrogen 12 mg/dl (7-17); Creatinine Clearance Estimated 57 mL/min (50-200); Estimated Glomerular Filt Rate 98 ml/min (>60); GFR (African American) 119 ML/MIN (>60); MANUAL DIFFERENTIAL MANUAL DIFFERENTIAL (MANUAL DIFF)
[2020-04-17 07:34] LABS: Albumin Level 3.5 g/dl (3.5-5.0); Albumin/Globulin Ratio 1.3 (1.1-1.8); Anion Gap 10.3 mEq/L (5-15); Calcium 8.8 mg/dl (8.4-10.2); Carbon Dioxide 26 mmol/L (22.0-30.0); Globulin 2.8 g/dL (1.3-3.2); Glucose 125 mg/dl (74-100); Total Protein,Serum 6.3 g/dl (6.3-8.2)
[2020-04-17 08:00] VITALS: BP 152/79; PULSE 92; RESP 16; TEMP 37.6; O2SAT 93
--- NOTE | 2020-04-17 08:11 | HMH.ACPN2 ---
<Jackeline Pace - Last Filed: 04/17/20 08:11> Internal Medicine - PN: Subj *Date: 04/17/20 *Time: 08:11 Interval history: Patient states she is feeling well this morning. She slept well last night and ate a small amount of breakfast. She denies any pain in her hip this morning but has not been up with therapy yet. She still has a catheter in place. Exam Vital signs and Labs for Last 24 Hours: Temp Pulse Resp BP Pulse Ox 99.7 F H 92 H 16 152/79 H 93 L 04/17/20 08:00 04/17/20 08:00 04/17/20 08:00 04/17/20 08:00 04/17/20 08:00 Laboratory Results - last 24 hr 04/16/20 08:38: WBC 8.0 D, RBC 4.24, Hgb 14.2, Hct 40.4, MCV 95.3, MCH 33.5 H, MCHC 35.2, RDW 12.9, Plt Count 171, MPV 8.9, Neut % (Auto) 82.2 H, Lymph % (Auto) 9.5 L, Stewart % (Auto) 7.8, Eos % (Auto) 0.3, Baso % (Auto) 0.2, Neut # (Auto) 6.6, Lymph # (Auto) 0.8, Stewart # (Auto) 0.6, Eos # (Auto) 0.0, Baso # (Auto) 0.0 04/16/20 08:38: Sodium 138, Potassium 4.7 D, Chloride 105, Carbon Dioxide 28, Anion Gap 9.7, BUN 11, Creatinine 0.60, Estimated Creat Clear 57, Estimated GFR 98, Est GFR ( Amer) 119, Glucose 120 H, Calcium 9.3 D, Total Bilirubin 1.3, AST 23, ALT 15, Alkaline Phosphatase 67, Total Protein 6.6, Albumin 3.7 D, Globulin 2.9, Albumin/Globulin Ratio 1.3 04/16/20 10:30: Urine Color Yellow, Urine Appearance Turbid, Urine pH 7.0, Ur Specific [place] 1.020, Urine Protein Negative, Urine Glucose (UA) Negative, Urine Ketones 1+, Urine Blood Trace-i, Urine Nitrate Negative, Urine Bilirubin Negative, Urine Urobilinogen 1.0, Ur Leukocyte Esterase Negative, Urine RBC 10-20, Urine WBC 5-10, Ur Squamous Epith Cells Occasional, Urine Bacteria 3+ A 04/17/20 06:50: WBC 9.8, RBC 4.20, Hgb 13.9, Hct 39.8, MCV 94.6, MCH 33.1 H, MCHC 35.0, RDW 12.9, Plt Count 150, MPV 9.3, Neut % (Auto) 85.1 H, Lymph % (Auto) 7.6 L, Stewart % (Auto) 6.9, Eos % (Auto) 0.2, Baso % (Auto) 0.1, Neut # (Auto) 8.3 H, Lymph # (Auto) 0.7, Stewart # (Auto) 0.7, Eos # (Auto) 0.0, Baso # (Auto) 0.0 04/17/20 06:50: Sodium 136, Potassium 4.3, Chloride 104, Carbon Dioxide 26, Anion Gap 10.3, BUN 12, Creatinine 0.60, Estimated Creat Clear 57, Estimated GFR 98, Est GFR ( Amer) 119, Glucose 125 H, Calcium 8.8, Total Bilirubin 1.5 H, AST 24, ALT 16, Alkaline Phosphatase 64, Total Protein 6.3, Albumin 3.5, Globulin 2.8, Albumin/Globulin Ratio 1.3 I & O for Last 24 hours: Intake & Output 04/14/20 04/15/20 04/16/20 04/17/20 11:59 11:59 11:59 11:59 Intake Total 0 / 0 1480 / 1480 Output Total 50 / 50 550 / 550 Balance -50 / -50 930 / 930 Weight 158 lb 8 oz 158 lb 7 oz - Constitutional no acute distress - *Routine Respiratory Exam Present: CTA bilaterally - *Routine Cardiovascular Exam Present: RRR - *Routine Abdominal Exam Present: soft, normoactive bowel sounds. Absent: tenderness - *Routine Extremities Exam Absent: cyanosis, clubbing, edema - *Routine Skin Exam Present: warm. Absent: rash Comments: Clean dressing in place over left hip. - *Routine Neurological Exam Present: alert, oriented X3 Assessment and Plan (1) Hypertension Current visit: Yes Status: Chronic Category: Medical Code(s): I10 - Essential (primary) hypertension (2) Hyperlipidemia Current visit: Yes Status: Chronic Category: Medical Code(s): E78.5 - Hyperlipidemia, unspecified (3) Arthritis Current visit: Yes Status: Chronic Category: Medical Code(s): M19.90 - Unspecified osteoarthritis, unspecified site (4) Intertrochanteric fracture of left hip Current visit: Yes Status: Acute Category: Medical Code(s): S72.142A - Displaced intertrochanteric fracture of left femur, initial encounter for closed fracture - Assessment and plan all Dx Assessment and Plan for all problems:: Surgery to follow. Patient will likely start physical therapy today. Awaiting urine culture results as she may have a possible UTI based on U/A. <Charli Olivares - Last Filed: 04/17/20 08:39>
[2020-04-17 08:49] LABS: Eosinophils % 1 % (0-3); Lymphocytes % 11 % (10-50); Monocytes % 5 % (2-9); Neutrophils % 83 % (42-76); Platelet Estimate Normal; RBC Morphology Normal; Total Cells Counted 100
--- NOTE | 2020-04-17 09:37 | PC.NURSE ---
PATIENT COMPLAINS OF PAIN AND MOANS, THIS RN OFFERED PAIN MEDICATION. PATIENT REFUSED. OT AT BEDSIDE, ENCOURAGED PATIENT TO TAKE PAIN MEDICATION. PATIENT CONTINUED TO REFUSED.
--- NOTE | 2020-04-17 09:39 | HMH.PTEV ---
Physical Therapy Evaluation Rehab PT IP Evaluation Start: 04/16/20 13:41 Freq: ONCE Status: Active Protocol: Document 04/17/20 09:29 SHARON (Rec: 04/17/20 09:39 SHARON [id number]) Subjective/History History History This is the initial IP PT evaluation for Gisel Venegas. Pt is a 74 y/o female admitted to [facility] s/p fall at home causing displaced intertrochanteric fracture. Pt had placement of IMN yesterday. Subjective Subjective Pt reports c/o severe pain, being uncomfortable and expresses feelings of not being able to tolerate this Rehab PT IP Eval Objective Appearance Patient Behavior Anxious,Fearful,Resistive to Care Patient Orientation Person,Place,Time,Name, Birthday,Year Difficulty following instructions none Speech Pattern Clear,Appropriate Ambulation Patient Able to Ambulate Yes Ambulation Observation IP General Gait Pattern Observation Antalgic Gait,Shuffling Step Ambulation Distance (feet) 5 Ambulation Assistive Device Rolling Walker Ambulation Ability Minimal x 1 (25% assist) Balance Ability to Arise Able, uses arms to help Sitting Balance Leans or slides in chair Standing Balance Unsteady Dynamic Sitting Balance Ability Good Dynamic Standing Balance Ability Poor Transfers Bed Transfer Ability Minimal x 1 (25% assist) Chair Transfer Ability Minimal x 1 (25% assist) Sit to Stand Bed Transfer Ability Minimal x 1 (25% assist) Sit to Stand Chair Transfer Ability Minimal x 1 (25% assist) ROM LLE PT ROM Status ABN Abnormal ROM Comment limited due to pain MMT LLE PT MMT ABN Abnormal MMT Grade 3-/5 Rehab PT IP prob,goals,plan Problems Date of Evaluation: 04/17/20 Rehab Potential Rehab Potential Fair Equipment Needs Assistive Devices Rolling / Wheeled Walker Plan PT Intervention Plan Bed Mobility,Transfers,Gait, Balance,Self care,Safety, Therapeutic Exercise Discharge Goals Bed Transfer Ability Minimal x 1 (25% assist) Sit to Stand Chair Transfer Ability Minimal x 1 (25% assist) Ambulation Assistive Device Rolling Walker Ambulation Distance (feet) 15 Discharge Plan PT Discharge Plan pt would benefit from skilled
--- NOTE | 2020-04-17 09:57 | HMH.OTEV ---
OT Inpatient Evaluation Rehab OT IP Evaluation Start: 04/16/20 13:41 Freq: ONCE Status: Complete Protocol: Document 04/17/20 09:51 [facility] (Rec: 04/17/20 09:57 [facility] [id number]) Rehab OT IP Assessment Subjective History Pt oriented x 3 on arrival. Pt agreeable to engage in therapy evaluation. Pt was admitted via ED on 04.16.20 after a fall at home and contniued L hip pain. Pt dx with a L femur fx. Pt required a intramedullary nail of L femur on 04/16/20. Pt reports prior to fall she lives with her and son . Pt claims she was independent with all ADLs and IADLs. Pt did not require AE such as rolling walker during ambulation. Pt also still drove. Subjective I could do anything. Objective Patient Orientation Person,Place,Birthday Upper Extremity Gross ROM WFL Transfer Training Sit/Stand Transfer Assist Level Minimal x 1 (25% assist) Chair Transfer Ability Minimal x 1 (25% assist) Chair Transfer Technique Sit to/from Ambulatory Chair Transfer Assistive Devices Rolling Walker Rehab OT IP prob,goals,plan Problems Date of Evaluation: 04/17/20 OT IP Problems Bed Mobility,Transfers,Gait, Balance,Self care,Safety Rehab Potential Rehab Potential Good Equipment Needs Assistive Devices Rolling / Wheeled Walker Plan OT intervention Plan Bed Mobility,Transfers,Gait, Balance,Self care,Safety, Therapeutic Exercise OT Plan Frequency Daily Duration LOS Discharge Goals Sit to Stand Chair Transfer Ability Contact Guard/Hand Hold Chair Transfer Ability Contact Guard/Hand Hold Chair Transfer Technique Sit to/from Ambulatory Chair Transfer Assistive Devices Rolling Walker Feeding Ability Independent Lower Body Dressing Ability Assistance X1 Upper Body Dressing Ability Standby Assistance Bathing Ability Assistance x1 Performing Toilet Hygiene Ability Standby Assistance Overall Commode/Toilet Transfer Ability Standby Assistance Commode/Toilet Transfer Technique Sit to/from Ambulatory Discharge Plan OT Discharge Plan Pt would benefit most from short term rehab foll
[2020-04-17 11:20] VITALS: BP 149/73; PULSE 77; RESP 17; TEMP 37.4; O2SAT 95
--- NOTE | 2020-04-17 12:52 | HMH.ORTHPN ---
Subjective Date: 04/17/20 Time: 12:30 Principal diagnosis: L hip fracture Interval history: The patient is doing well this morning, sitting up in bed eating lunch. She reports pain in the L hip. No fevers/chills reported, no chest pain or shortness of breath. No drainage from L hip dressings, no numbness/tingling in LLE. She has been out of bed with PT, who recommended SNF placement. The patient is adamantly against SNF placement and would like to return home with home health PT if possible. She says her and/or daughter will be with her at all times and are able to provide support. PN: Obj Ex Vital signs: Temp Pulse Resp BP Pulse Ox 99.4 F 77 17 149/73 H 95 04/17/20 11:20 04/17/20 11:20 04/17/20 11:20 04/17/20 11:20 04/17/20 11:20 - Constitutional no acute distress - Routine HEENT Exam Head: Present: normocephalic Eye: Present: EOMI ENT: Present: mucous membranes moist - Routine Neck Exam Present: trachea midline - Routine Respiratory Exam Absent: respiratory distress, wheezes - Routine Cardiovascular Exam Present: RRR - Routine Abdominal Exam Present: soft. Absent: tenderness - Routine Extremities Exam Comments: L hip dressings c/d/i, no strikethrough +DF/PF/EHL LLE SILT distally LLE in all distributions L calf soft, non-tender; negative Donte's palpable pedal pulses LLE, L foot pink/warm - Routine Skin Exam Present: warm - Routine Neurological Exam Present: alert, oriented X3, moving all extremities, normal tone, vision grossly intact, hearing grossly intact, normal speech. Absent: sensory deficit, motor deficit, altered mental status - Urinary Catheter Management Lazar Cath placed during this visit: no Progress Note: A&P (1) Hypertension Status: Chronic Current Visit: Yes (2) Hyperlipidemia Status: Chronic Current Visit: Yes (3) Arthritis Status: Chronic Current Visit: Yes (4) Intertrochanteric fracture of left hip Status: Acute Current Visit: Yes Assessment and Plan for All Diagnoses:: 74yo F POD 1 s/p IMN L femur for IT fx -- WBAT LLE, continue PT/OT -- dressing change L hip on POD 2; will change tomorrow -- ice pack L hip as needed -- d/c katy -- finish 24hr prophy antibiotics -- DVT prophy: SCDs, lovenox -- encourage incentive spirometer 10x/hr while awake -- dispo planning: anticipate d/c home tomorrow with HHPT
--- NOTE | 2020-04-17 14:14 | SW/DCPLANNER ---
Addendum entered by Aviva Batres 04/18/20 11:14: SET UP DME...WALKER AND BEDSIDE COMMODE AND HOME HEALTH WITH [facility] IN [facility] THAT ARE IN [facility]... PATIENT IS DISCHARGING HOME WITH FAMILY ONCE EQUIPMENT IS DELIVERED TO THE HOSPITAL... Addendum entered by Aviva Batres 04/18/20 07:51: SPOKE WITH AND DAUGHTER AND EXPLAINED TO THE BOTH OF THEM SHE WAS GOOD AND ACCORDING TO PHYSICAL THERAPY SHE IS SAFE TO RETURN HOME...THE ONLY THING THAT CONCERNED THEM WAS HER MENTAL STATUS. I DID MENTION THAT TO DR AVERY AND HE SAID HE HAS NOT NOTICED HER HAVING ANY MENTATION PROBLEMS..WILL WORK ON A DISCHARGE PLAN AND WHEN PATIENT IS READY ASSIST WITH ANY NEEDS SHE MAY HAVE... Original Note: WENT IN THIS MORNING TO SPEAK WITH PATIENT THIS MORNING REGARDING HER DISCHARGE PLANS: PATIENT HAD JUST WOKE UP AND APPEARED TO BE VERY CONFUSED... I DID GO BACK LATER AND SHE AND WERE SITTING UP IN THE CHAIR AFTER HER THERAPY SESSION AND SHE SEEMED TO BE BETTER... STATED HE WANTS HIS TO GO HOME WHEN SHE IS READY FOR DISCHARGE.. THERAPY SAID SHE DID WELL OTHER THAN COGNITION... STATED SHE HAS A WALKER AND BEDSIDE COMMODE. I DID SPEAK WITH DR AVERY AND HE SAID WHATEVER FAMILY WANTS HE IS OK WITH IT.. DR PEREZ STATED SHE FELT PATIENT IS SAFE TO GO HOME WITH HOME HEALTH SERVICES...
[2020-04-17 15:52] VITALS: BP 139/65; PULSE 83; RESP 17; TEMP 36.9; O2SAT 94
--- NOTE | 2020-04-17 19:27 | PC.NURSE ---
PATIENT SHOWS SOME CONFUSION TO WHAT SHE ATE, WHAT SHE DRANK AND WHAT MEDICATIONS SHE HAS TAKEN. PATIENT COMPLAINS OF PAIN WITH AMBULATION. PATIENT REFUSES PAIN MEDICATION. THIS RN EDUCATED PATIENT THE IMPORTANCE OF PAIN CONTROL. PATIENT DID AGREE TO TYLENOL. THIS RN REMOVED NEVAREZ, PATIENT TOLERATED WELL. PATIENT HAS AMBULATED TO RESTROOM WITH WALKER. PATIENT HAS HAD POOR APPETITE DURING THIS RN SHIFT. THIS RN EDUCATED PATIENT AND FAMILY THE IMPORTANCE OF NUTRITION FOR HEALING. PATIENT VERBALIZED AN UNDERSTANDING. NO OTHER CONCERNS AT THIS TIME.
[2020-04-17 20:00] VITALS: BP 144/76; PULSE 74; RESP 18; TEMP 36.9; O2SAT 94
[2020-04-18] VITALS: BP 158/73; PULSE 71; RESP 18; TEMP 36.8; O2SAT 95
[2020-04-18 04:00] VITALS: BP 153/64; PULSE 72; RESP 14; TEMP 36.8; O2SAT 95
[2020-04-18 05:00] VITALS: BMI 24.0
[2020-04-18 07:39] VITALS: BP 141/66; PULSE 75; RESP 19; TEMP 36.5; O2SAT 92
--- NOTE | 2020-04-18 08:29 | HMH.ACPN2 ---
<Jackeline Pace - Last Filed: 04/18/20 08:29> Internal Medicine - PN: Subj *Date: 04/18/20 *Time: 08:29 Interval history: Patient states she is feeling well this morning. She only has pain when she has to lift her leg. She cannot remember working with physical therapy yesterday. She slept well last night and ate well this morning. She was seen by Dr. Yao yesterday. She is adamant she does not go to a group home facility and her family would like for her to go home with home health. Exam Vital signs and Labs for Last 24 Hours: Temp Pulse Resp BP Pulse Ox 97.7 F 75 19 141/66 H 92 L 04/18/20 07:39 04/18/20 07:39 04/18/20 07:39 04/18/20 07:39 04/18/20 07:39 Laboratory Results - last 24 hr 04/17/20 06:50: Total Counted 100, Neutrophils % (Manual) 83 H, Lymphocytes % (Manual) 11, Monocytes % (Manual) 5, Eosinophils % (Manual) 1, Platelet Estimate Normal, RBC Morphology Normal I & O for Last 24 hours: Intake & Output 04/15/20 04/16/20 04/17/20 04/18/20 11:59 11:59 11:59 11:59 Intake Total 0 / 0 1480 / 1480 240 / 240 Output Total 50 / 50 550 / 550 540 / 540 Balance -50 / -50 930 / 930 -300 / -300 Weight 158 lb 8 oz 158 lb 7 oz 153 lb 3 oz Microbiology Reports for the Last 24 Hours: Microbiology 04/16/20 10:30 Urine,Catheterized Urine Culture - Preliminary NO GROWTH AFTER 24 HOURS - Constitutional no acute distress - *Routine Respiratory Exam Present: CTA bilaterally - *Routine Cardiovascular Exam Present: RRR - *Routine Abdominal Exam Present: soft, normoactive bowel sounds. Absent: tenderness - *Routine Extremities Exam Absent: cyanosis, clubbing, edema - *Routine Skin Exam Present: warm. Absent: rash Comments: dressing in place on left hip - *Routine Neurological Exam Present: alert, oriented X3 Assessment and Plan (1) Hypertension Current visit: Yes Status: Chronic Category: Medical Code(s): I10 - Essential (primary) hypertension (2) Hyperlipidemia Current visit: Yes Status: Chronic Category: Medical Code(s): E78.5 - Hyperlipidemia, unspecified (3) Arthritis Current visit: Yes Status: Chronic Category: Medical Code(s): M19.90 - Unspecified osteoarthritis, unspecified site (4) Intertrochanteric fracture of left hip Current visit: Yes Status: Acute Category: Medical Code(s): S72.142A - Displaced intertrochanteric fracture of left femur, initial encounter for closed fracture - Assessment and plan all Dx Assessment and Plan for all problems:: Possible discharge home today with home health. Will discuss with Dr. Olivares and care management. <Charli Olivares - Last Filed: 04/18/20 09:01> Internal Medicine - PN: Subj *Date: 04/18/20 *Time: 09:00 Exam Vital signs and Labs for Last 24 Hours: Temp Pulse Resp BP Pulse Ox 97.7 F 75 19 141/66 H 92 L 04/18/20 07:39 04/18/20 07:39 04/18/20 07:39 04/18/20 07:39 04/18/20 07:39 I & O for Last 24 hours: Intake & Output 04/15/20 04/16/20 04/17/20 04/18/20 23:59 23:59 23:59 23:59 Intake Total 1120 / 1120 600 / 600 Output Total 150 / 600 450 / 450 540 / 540 Balance 970 / 520 150 / 150 -540 / -540 Weight 158 lb 8 oz 158 lb 7 oz 153 lb 3 oz Microbiology Reports for the Last 24 Hours: Microbiology 04/16/20 10:30 Urine,Catheterized Urine Culture - Preliminary NO GROWTH AFTER 24 HOURS Assessment and Plan (1) Hypertension Current visit: Yes Status: Chronic Category: Medical Code(s): I10 - Essential (primary) hypertension (2) Hyperlipidemia Current visit: Yes Status: Chronic Category: Medical Code(s): E78.5 - Hyperlipidemia, unspecified (3) Arthritis Current visit: Yes Status: Chronic Category: Medical Code(s): M19.90 - Unspecified osteoarthritis, unspecified site (4) Intertrochanteric fracture of left hip Current visit: Yes Stat
--- NOTE | 2020-04-18 08:59 | HMH.ORTHPN ---
Subjective Date: 04/18/20 Time: 08:30 Principal diagnosis: L hip fracture Interval history: The patient is doing well this morning, sitting in bedside chair. She has been working with PT and is likely to d/c home today with home health. No fevers/chills reported, no chest pain or shortness of breath. Tolerating PO intake, voiding independently. PN: Obj Ex Vital signs: Temp Pulse Resp BP Pulse Ox 97.7 F 75 19 141/66 H 92 L 04/18/20 07:39 04/18/20 07:39 04/18/20 07:39 04/18/20 07:39 04/18/20 07:39 - Constitutional no acute distress - Routine HEENT Exam Head: Present: normocephalic Eye: Present: EOMI ENT: Present: mucous membranes moist - Routine Neck Exam Present: trachea midline - Routine Respiratory Exam Absent: respiratory distress, wheezes - Routine Cardiovascular Exam Present: RRR - Routine Abdominal Exam Present: soft. Absent: tenderness - Routine Extremities Exam Comments: L hip dressings c/d/i, no strikethrough dressing removed, incisions c/d/i without erythema or drainage +DF/PF/EHL LLE SILT distally LLE in all distributions L calf soft, non-tender; negative Donte's palpable pedal pulses LLE, L foot pink/warm - Routine Skin Exam Present: warm. Absent: erythema, ecchymosis - Routine Neurological Exam Present: alert, oriented X3, moving all extremities, normal tone, vision grossly intact, hearing grossly intact, normal speech. Absent: sensory deficit, motor deficit, altered mental status - Routine Psychiatric Exam Present: normal affect - Urinary Catheter Management Lazar Cath placed during this visit: no Urethral indwelling: No Progress Note: A&P (1) Hypertension Status: Chronic Current Visit: Yes (2) Hyperlipidemia Status: Chronic Current Visit: Yes (3) Arthritis Status: Chronic Current Visit: Yes (4) Intertrochanteric fracture of left hip Status: Acute Current Visit: Yes Assessment and Plan for All Diagnoses:: 74yo F POD 2 s/p IMN L femur for IT fx -- WBAT LLE, continue PT/OT -- ice pack L hip as needed -- DVT prophy: SCDs, lovenox -- encourage incentive spirometer 10x/hr while awake -- dispo planning: anticipate d/c home today with HHPT; follow-up in clinic in 2 weeks
--- NOTE | 2020-04-18 09:11 | PC.NURSE ---
Pt would benefit from using rolling walker with ambulation related to left hip surgery.
--- NOTE | 2020-04-18 11:45 | HMH.PHAINT ---
DISCHARGE COUNSELING COMPLETED.
--- NOTE | 2020-04-18 15:07 | HMH.DCSUM ---
General - General Admission date:: 04/15/20 Discharge date: 04/18/20 HPI HPI: Ms Venegas is a 74 year old male with a history of hypertension, hypercholesteremia, and arthritis who presented to [facility] emergency room with hip pain secondary to a fall. She states she walked into her house from the garden down a step when her left leg gave way resulting in a fall. She landed on her left side and then complained of left severe Hip pain. Her family was present and had her brought to [facility] via EMS. She continued with the left hip and groin pain. With evaluation in the emergency room she was found to have an entero-trochanteric fracture of the left proximal femur. She received a liter of IV fluids, and hydromorphine, lorazepam, and morphine, for her pain. She was then admitted after consultation with Dr. Yao for management of her hip fracture. This a.m. patient continues to have left hip pain when she moves. She states she did sleep some. EKG and chest x-ray have been ordered for preop eval. Hospital Course Hospital Course: The patient was seen in consultation by Dr. Gale who planned intramedullary nailing of the left femur. The patient was given preop antibiotics and taken to the OR on 04/16/2020. The patient tolerated the procedure well and an x-ray after the procedure showed ORIF of the left intertrochanteric fracture. The patient was able to rest well and eat after her surgery. She only had pain when lifting her leg. She was able to work with physical therapy. There was some concern about her urinalysis, however her urine culture showed no growth at [address] Gale discussed custodial placement with the family and they were adamant that they would like for her to return home with home health. Care management was consulted and the patient was stable to be discharged home with home health for physical therapy. She will need to follow-up with Dr. Gale in [address] Olivares in 3 weeks. She is to be weightbearing as tolerated on the left lower extremity and apply an ice pack to the left hip as needed. Objective Vital signs: Temp Pulse Resp BP Pulse Ox 97.7 F 75 19 141/66 H 92 L 04/18/20 07:39 04/18/20 07:39 04/18/20 07:39 04/18/20 07:39 04/18/20 07:39 Narrative: - Constitutional no acute distress Comments: Lying in bed. Appears comfortable. Daughter is at bedside. - *Routine HEENT Exam Head: Present: normocephalic, atraumatic Eye: Present: PERRL. Absent: conjunctival icterus, scleral injection ENT: Present: mucous membranes moist, oropharynx clear, dentition normal - *Routine Neck Exam Present: supple. Absent: carotid bruit, lymphadenopathy, thyromegaly - *Routine Respiratory Exam Present: CTA bilaterally (Anteriorly and posteriorly) - *Routine Cardiovascular Exam Present: RRR - *Routine Abdominal Exam Present: soft, normoactive bowel sounds. Absent: tenderness, distended, organomegaly, mass - *Routine Extremities Exam Present: pulses intact. Absent: edema, calf tenderness Comments: Left leg externally rotated - *Routine Neurological Exam Present: alert, oriented X3, normal speech DS: Diagnosis - Discharge Diagnosis (1) Hypertension Status: Chronic (2) Hyperlipidemia Status: Chronic (3) Arthritis Status: Chronic (4) Intertrochanteric fracture of left hip Status: Acute Discharge Plan - Patient Discharge Instructions ACTIVITY: Up with assistance DIET: continue same diet Additional Instructions: -- weightbearing as tolerated left lower extremity, use walker for assistance -- home health physical therapy -- may shower starting 04/20/20; strongly recommend use of shower chair. Keep shower brief, do not scrub incision, pay dry and cover with dry dressing. Change dressing every 1-2 days, or when showering. -- continue ice pack
== END 2020-04-18 11:43 | disposition home health service (06) | DRG 482 ==
LOC: ER 18:05 → 2ND 19:02
PROVIDERS: Orthopaedic Surgery; Admitting Provider Family Medicine; Emergency Provider Family Medicine; PCP Family Medicine; Visit Provider Family Medicine
DX: S72.142A Displaced intertrochanteric fracture of left femur, initial encounter for closed fracture (principal); I10 Essential (primary) hypertension; E78.5 Hyperlipidemia, unspecified; Z79.899 Other long term (current) drug therapy; W10.8XXA Fall (on) (from) other stairs and steps, initial encounter; Y92.015 Private garage of single-family (private) house as the place of occurrence of the external cause; M19.91 Primary osteoarthritis, unspecified site
CPT/HCPCS: 27245; 36415; 71045; 73502; 73700; 76000; 80053; 81001; 85007; 85025; 86328; 87086; 87581; 87633; 87798; 93005; 96365; 96375; 97162; 97165; 97530; 99284; C1713; J2405; J2704

== ENCOUNTER → 2020-05-02 12:52 | Outpatient (CLI) | payer MEDICARE, SELFPAY ==
--- NOTE | 2020-05-02 12:58 | XR_ITS ---
PROCEDURE: XR HIP LT 2-3V W/PELVIS CLINICAL INDICATION: sp lt femur nailing, dos 04/16/2020 COMPARISON: No exams were available for comparison FINDINGS: Status post placement a gamma nail and short intramedullary harjinder stabilizing the left intertrochanteric femoral neck fracture which is in good alignment. Postsurgical skin clips are present. There is a lucency inferior to the most inferior screw within the intramedullary harjinder consistent with a screw tract. IMPRESSION: Good alignment status post ORIF left hip Dictated by: Ayaan Sun MD 05/02/2020 13:24 Ayaan Sun MD in [place] 05/02/2020 13:24
--- NOTE | 2020-05-02 12:58 | XR_ITS ---
PROCEDURE: XR FEMUR LT 2V CLINICAL INDICATION: sp LT femur nailing, weightbearing Follow-up ORIF COMPARISON: CR XR HIP LT 2-3V W/PELVIS from 05/02/2020 FINDINGS: S/p gamma nail with short intramedullary harjinder placement with good alignment of the intertrochanteric fracture. The mid distal aspect of the femur are unremarkable aside from mild osteoarthritic changes of the medial compartment and patellofemoral joint. An extra lucency is noted posterior to the lower screw within the intramedullary harjinder and may be related to an screw tract. IMPRESSION: Good alignment status post ORIF intertrochanteric fracture of the left hip Dictated by: Ayaan Sun MD 05/02/2020 13:30 Ayaan Sun MD in [place] 05/02/2020 13:30
== END ==
PROVIDERS: PCP Family Medicine; Visit Provider Orthopaedic Surgery
DX: Z09 Encounter for follow-up examination after completed treatment for conditions other than malignant neoplasm (principal)
CPT/HCPCS: 73502; 73552

== ENCOUNTER 2020-05-02 14:23 | Outpatient (RCR) | payer MEDICARE, SELFPAY | END 2020-05-02 15:02 | disposition home or self-care (01) | LOC: PT 14:23 | PROVIDERS: Visit Provider Orthopaedic Surgery | DX: M25.562 Pain in left knee (principal) | CPT/HCPCS: 97760 ==

== ENCOUNTER → 2020-05-14 09:32 | Outpatient (CLI) | payer MEDICARE, SELFPAY ==
--- NOTE | 2020-05-14 09:35 | XR_ITS ---
PROCEDURE: XR DEXA AXIAL SKELETON CLINICAL HISTORY: POST MENOPAUSAL COMPARISON: No exams were available for comparison FINDINGS: The right hip BMD is .500 with a T-score of -3.1. The left forearm BMD is 0.505 with a T-score of -3.1. The lumbar spine BMD is 0.799 with a T-score of -2.3. IMPRESSION: This patient is considered osteoporotic according to the World Health Organization criteria. Fracture risk is high. Treatment is advised. Based on these results a follow-up exam is recommended in 1 year. Dictated by: Ayaan Sun MD 05/15/2020 04:20 Ayaan Sun MD in [place] 05/15/2020 04:20
== END ==
PROVIDERS: PCP Family Medicine; Visit Provider Family Medicine
DX: Z13.820 Encounter for screening for osteoporosis (principal); M81.0 Age-related osteoporosis without current pathological fracture
CPT/HCPCS: 77080

== ENCOUNTER → 2020-06-03 12:42 | Outpatient (CLI) | payer MEDICARE, SELFPAY ==
--- NOTE | 2020-06-03 12:47 | XR_ITS ---
PROCEDURE: XR KNEE LT 4V CLINICAL INDICATION: Lt knee pain COMPARISON: CR [id number] KNEE-3 VIEWS-LT from 04/20/2016 CR [id number] KNEE-LIMITED 2 VIEWS-LT from 04/27/2016 FINDINGS: No fracture or dislocation. No lytic or blastic change. There is normal mineralization. There are mild osteoarthritic changes of the medial and lateral compartment and patellofemoral joint.. There is some cortical regularity of the articular surface at the medial compartment. There is mild lateral translation of the tibia by 4-5 mm IMPRESSION: Mild osteoarthritis of the knee slightly worse from the previous exam Dictated by: Ayaan Sun MD 06/03/2020 14:24 Ayaan Sun MD in [place] 06/03/2020 14:24
--- NOTE | 2020-06-03 12:47 | XR_ITS ---
PROCEDURE: XR HIP LT 2-3V W/PELVIS CLINICAL INDICATION: Left hip pain Follow-up hip surgery COMPARISON: CR XR HIP LT 2-3V W/PELVIS from 05/02/2020 FINDINGS: Gamma nail with short intramedullary harjinder stabilizing a trochanteric hip fracture with good alignment. Fracture line is still visible. There is good alignment. There is overlying sclerosis of the symphysis pubis. Zipper artifact is present. Technologist notes that the patient refused to remove her garments for the exam. 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
== END ==
PROVIDERS: PCP Family Medicine; Visit Provider Orthopaedic Surgery
DX: M25.562 Pain in left knee (principal); S72.142A Displaced intertrochanteric fracture of left femur, initial encounter for closed fracture
CPT/HCPCS: 73502; 73564

== ENCOUNTER → 2020-07-01 10:25 | Outpatient (CLI) | payer MEDICARE, SELFPAY ==
--- NOTE | 2020-07-01 10:29 | XR_ITS ---
PROCEDURE: XR HIP LT 2-3V W/PELVIS CLINICAL INDICATION: LT hip F/U Follow-up fracture/ORIF COMPARISON: CR XR HIP LT 2-3V W/PELVIS from 06/03/2020 FINDINGS: Status post ORIF left intertrochanteric fracture with gamma nail and short intramedullary harjinder. There is good alignment of the fracture fragments. Fracture line is still visible. IMPRESSION: Good alignment status post ORIF left intertrochanteric hip fracture. Dictated by: Ayaan Sun MD 07/01/2020 11:10 Ayaan Sun MD in [facility] 07/01/2020 11:10
== END ==
PROVIDERS: PCP Family Medicine; Visit Provider Orthopaedic Surgery
DX: S72.142A Displaced intertrochanteric fracture of left femur, initial encounter for closed fracture (principal)
CPT/HCPCS: 73502

== ENCOUNTER → 2020-08-05 10:10 | Outpatient (CLI) | payer MEDICARE, SELFPAY ==
--- NOTE | 2020-08-05 10:15 | XR_ITS ---
PROCEDURE: XR HIP LT 2-3V W/PELVIS CLINICAL INDICATION: s/p IMN L femur for IT fx Follow-up left hip fracture COMPARISON: CR XR HIP LT 2-3V W/PELVIS from 07/01/2020 FINDINGS: Gamma nail with short intramedullary harjinder is present with good alignment. Healing intertrochanteric fracture noted with good alignment. Osteitis pubis is present. IMPRESSION: Good alignment healing intertrochanteric fracture status post Dictated by: Ayaan Sun MD 08/05/2020 15:08 Ayaan Sun MD in [facility] 08/05/2020 15:08
== END ==
PROVIDERS: PCP Family Medicine; Visit Provider Orthopaedic Surgery
DX: S72.142A Displaced intertrochanteric fracture of left femur, initial encounter for closed fracture (principal)
CPT/HCPCS: 73502

== ENCOUNTER → 2020-09-16 09:53 | Outpatient (CLI) | payer MEDICARE, SELFPAY ==
--- NOTE | 2020-09-16 09:57 | XR_ITS ---
PROCEDURE: XR HIP LT 2-3V W/PELVIS CLINICAL INDICATION: s/p IMN L femur for IT fx COMPARISON: CR XR HIP LT 2-3V W/PELVIS from 08/05/2020 FINDINGS: Gamma nail and short intramedullary harjinder are present stabilizing a healing intertrochanteric left femur neck fracture which is in good alignment. IMPRESSION: Good alignment healing left intertrochanteric femoral neck fracture Dictated by: Ayaan Sun MD 09/16/2020 14:47 Ayaan Sun MD in [facility] 09/16/2020 14:47
== END ==
PROVIDERS: PCP Family Medicine; Visit Provider Orthopaedic Surgery
DX: S72.142A Displaced intertrochanteric fracture of left femur, initial encounter for closed fracture (principal)
CPT/HCPCS: 73502

== ENCOUNTER 2023-12-11 12:59 | Emergency (ER) | payer MEDICARE, SELFPAY ==
[2023-12-11] VITALS (7 sets, daily range): BP systolic 150–178; BP diastolic 76–93; PULSE 64–78; RESP 18–20; TEMP 36.6; O2SAT 96–99; BMI 23.5
--- NOTE | 2023-12-11 14:03 | PC.NURSE ---
Dr. Flynn and Rosie Montes RN at for rectal exam
--- NOTE | 2023-12-11 14:05 | CT_ITS ---
PROCEDURE INFORMATION: Exam: CTA Abdomen and Pelvis With Contrast Exam date and time: 12/11/2023 2:34 PM Age: 77 years old Clinical indication: Abdominal pain; Acute; Additional info: Painless rectal bleeding TECHNIQUE: Imaging protocol: Computed tomographic angiography of the abdomen and pelvis with contrast. Exam focused on the arteries. 3D rendering (Not supervised by radiologist): MIP and/or 3D reconstructed images were created by the technologist. Radiation optimization: All CT scans at this facility use at least one of these dose optimization techniques: automated exposure control; mA and/or kV adjustment per patient size (includes targeted exams where dose is matched to clinical indication); or iterative reconstruction. Contrast material: ISOVUE; Contrast volume: 100 ml; Contrast route: INTRAVENOUS (IV); COMPARISON: CR XR HIP LT 2-3V W/PELVIS 09/16/2020 10:02 AM FINDINGS: Lungs: Included lung bases demonstrate no consolidation or mass. Mild subsegmental/dependent atelectasis. Aorta: No abdominal aortic aneurysm or dissection. Scattered calcified plaque along the abdominal aorta and included distal descending thoracic aorta. Celiac trunk and mesenteric arteries: Celiac artery has mild calcified ostial plaque with no significant stenosis. 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 SMA is widely patent. Patent OLIVERIO. Renal arteries: Single right renal artery. There are 3 left renal arteries with dominant middle renal artery. No occlusion or significant stenosis. Right iliac arteries: No occlusion or significant stenosis. Minimal calcified plaque. Left iliac arteries: No occlusion or significant stenosis. Minimal calcified plaque. Liver: Liver is normal. No lesions. Gallbladder and bile ducts: Gallbladder is normal. No calcified stones. No ductal dilatation. Pancreas: Pancreas is normal. No ductal dilatation. Spleen: Spleen is normal. Adrenal glands: No adrenal mass. Kidneys and ureters: Kidneys are normal. No renal stones seen. No hydronephrosis or hydroureter. Stomach and bowel: No bowel obstruction. Colonic diverticulosis. Diffuse colonic wall thickening of the descending and sigmoid colon with mild pericolonic inflammatory changes. Irregular contrast enhancement at the rectum may be site of active bleed from a terminal rectal branch of the OLIVERIO versus mucosal hyperenhancement. Stomach is nondistended, suboptimally evaluated. Appendix: No evidence of appendicitis. Intraperitoneal space: No free air. No significant fluid collection. Lymph nodes: No enlarged lymph nodes. Urinary bladder: Urinary bladder is unremarkable for degree of distention. Reproductive: Unremarkable as visualized. Bones/joints: No acute abnormality. Osteopenia. Subacute versus remote right posterior 10th rib fracture. Multilevel degenerative changes of the included spine. Chronic mild L4 vertebral body height loss. Minimal grade 1 anterolisthesis of L4 on L5. Left femoral intramedullary harjinder and gamma nail. Soft tissues: Small fat/fluid containing right inguinal hernia. IMPRESSION: 1. Colonic diverticulosis. Diffuse colonic wall thickening of the descending and sigmoid colon with mild pericolonic inflammatory changes compatible with non-specific colitis. Irregular contrast enhancement at the rectum may be site of active bleed from a terminal rectal branch of the OLIVERIO versus mucosal hyperenhancement, limited evaluation with single phase imaging, recommend correlation with clinical findings. As an underlying malignancy can not be entirely excluded, a follow-up examination after a course of treatment is recommended if clinically warranted. 2. Mild aortoiliac atherosclerotic disease. No aortic aneurysm, dissection, or evidence of acute abnormality. Major visceral branches are widely patent. 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 3. Other chronic and incidental findings as detailed above.
--- NOTE | 2023-12-11 14:06 | HMH.EDGENADL ---
Discharge Plan Disposition Patient Disposition: Home, Self-Care Chief Complaint: GI Bleed Prescriptions Prescriptions: No Action atorvastatin 10 MG tablet 10 mg PO HS amlodipine 5 MG tablet 5 mg PO DAILY cholecalciferol (vitamin D3) 1,000 UNIT capsule 1,000 unit PO DAILY Referrals Follow up/Referrals: Charli Olivares MD [Primary Care Provider] - See instructions Activity Restrictions/Add. Instructions Additional Instructions/Restrictions: Fall with Dr. Olivares within 48 business hours to establish care for his visit to the emergency department. Talk to him about scheduling a colonoscopy to further evaluate bleeding coming from rectum. If you have large-volume bloody bowel movements, inability to keep food down, chest pain, shortness of breath, lightheadedness, or any other concerns, return to the emergency department for further evaluation. Clinical Impressions Clinical Impression: Blood in stool, Colitis, Diverticulosis Instructions Patient Instructions: DI for Gastrointestinal Bleeding Discharge ED Provider: Ruslan Pérez General Adult HPI <Clyde Flynn MD - Last Filed: 12/11/23 14:48> General Chief complaint: GI Bleed Stated complaint: rectal bleeding Time Seen by Provider: 12/11/23 13:01 Mode of Arrival: Ambulatory Source of Information: Patient and Relative Limitations: No Limitations Description of Symptoms (Recalled from ER Triage Doc. by RN): 1 episode of bleeding rectally last night while having a bowel movement History of Present Illness HPI narrative: Patient is a 77-year-old female with past medical history of hypertension, hyperlipidemia, memory problems who presents emergency department for evaluation of rectal bleeding that is painless. History is obtained by patient and family at bedside. Patient had a bloody bowel movement last night, blood with wiping, suspected blood coating the stool. Stool is not black. There is no associated abdominal pain. No other acute complaints at this time. Patient does not report taking blood thinners. Related Data Home Medications Medication Instructions Recorded Confirmed amlodipine 5 mg tablet 5 mg PO DAILY Hypertension 04/15/20 09/16/20 atorvastatin 10 mg tablet 10 mg PO HS Cholesterol 04/15/20 09/16/20 cholecalciferol (vitamin D3) 25 1,000 unit PO DAILY Supplement 04/15/20 09/16/20 mcg (1,000 unit) capsule Allergies Allergy/AdvReac Type Severity Reaction Status Date / Time benazepril [BENAZEPRIL] Allergy Unknown angioedema Verified 09/16/20 10:26 [facility] <Clyde Flynn MD - Last Filed: 12/11/23 14:48> [facility] Disclaimer: The information contained in this section may have been updated after the patient was seen, as this information can be updated by other users. Social History Smoking Status: Never smoker alcohol intake: never substance use type: denies use current occupational status: retired Travel in the last 8 weeks: None household members: spouse and children housing: house current occupational exposures/hazards: No caffeine: Yes <Clyde Flynn MD - Last Filed: 12/11/23 14:48> ROS Obtained: Yes Systems reviewed as appropriate & no additional complaints except as documented Physical Exam <Clyde Flynn MD - Last Filed: 12/11/23 14:48> General General appearance: alert and in no apparent distress Head Head exam: atraumatic and normocephalic Eye Eye exam: Present PERRL ENT ENT exam: Present mucous membranes moist Neck Neck exam: Present normal inspection Chest Chest inspection: Present normal inspection and symmetric chest wall rise Respiratory Respiratory exam: Present normal lung sounds bilaterally; Absent respiratory distress Cardiovascular Cardiovascular exam: Present regular rate and normal rhythm Abdominal Exam Abdominal exam: Present soft; Absent tenderness or guarding External exam: Present other (No external bleeding hemorrhoids, 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 No blood or clots in the rectal vault.) Extremities Exam Extremities exam: Present normal inspection Neurological Exam Neurological exam: Present alert Psychiatric Psychiatric exam: Present normal affect Skin Skin exam: Present warm and dry Medical Decision Making <Clyde Flynn MD - Last Filed: 12/11/23 14:48> Aldo Inquiry Pt receiving controlled substance: No Vital Signs: 12/11/23 13:16 12/11/23 13:30 12/11/23 14:00 Temperature 97.9 F Temperature Source Oral Pulse Rate 67 73 Pulse Rate [Right] 78 Respiratory Rate 20 18 Blood Pressure 153/79 H 150/79 H Blood Pressure [Right Arm] 178/93 H Blood Pressure Mean 103 98 Blood Pressure Mean [Right Arm] 121 02 Sat by Pulse Oximetry 96 97 96 Oxygen Delivery Method Room Air 12/11/23 15:00 12/11/23 15:30 12/11/23 16:00 Temperature Temperature Source Pulse Rate 64 67 69 Pulse Rate [Right] Respiratory Rate 18 18 18 Blood Pressure 163/81 H 161/79 H 161/76 H Blood Pressure [Right Arm] Blood Pressure Mean 100 101 93 Blood Pressure Mean [Right Arm] 02 Sat by Pulse Oximetry 99 99 98 Oxygen Delivery Method Lab Data Lab Results 12/11/23 13:15: WBC 10.3, RBC 5.02, Hgb 16.4 H, Hct 50.2 H, MCV 100.0 H, MCH 32.7 H, MCHC 32.7, RDW 13.3, Plt Count 199, MPV 9.7, Neut % (Auto) 83.1 H, Lymph % (Auto) 8.6 L, [place] % (Auto) 7.4, Eos % (Auto) 0.0 L, Baso % (Auto) 0.8, Neut # (Auto) 8.5 H, Lymph # (Auto) 0.9, [place] # (Auto) 0.8, Eos # (Auto) 0.0, Baso # (Auto) 0.1, PT 10.9, INR 1.01, Sodium 140, Potassium 3.5, Chloride 105, Carbon Dioxide 29, Anion Gap 9.5, BUN 14, Creatinine 0.60, Estimated Creat Clear 51, Estimated GFR 97, Est GFR ( Amer) 118, Glucose 114 H, Calcium 11.7 H, Total Bilirubin 1.5 H, AST 33, ALT 27, Alkaline Phosphatase 99, Total Protein 7.8, Albumin 4.6, Globulin 3.2, Albumin/Globulin Ratio 1.4 12/11/23 14:06: Stool Occult Blood Negative 12/11/23 15:54: Urine Color Yellow, Urine Appearance Clear, Urine pH 7.5, Ur Specific [place] 1.010, Urine Protein Negative, Urine Glucose (UA) Negative, Urine Ketones Negative, Urine Blood Negative, Urine Nitrate Negative, Urine Bilirubin Negative, Urine Urobilinogen 0.2, Ur Leukocyte Esterase Negative, Urine RBC None, Urine WBC None, Ur Squamous Epith Cells Occasional, Urine Bacteria None 12/11/23 13:15 12/11/23 13:15 Orders (Tests/Meds): ED MEDICATIONS Discontinued Medications Generic Name Dose Route Start Last Admin Trade Name Freq PRN Reason Stop Dose Admin Iopamidol 75 ml 12/11/23 14:35 Iopamidol-370 (76%);100ml Bottle IV 12/11/23 14:36 ONCE ONE Iopamidol 100 ml 12/11/23 14:44 12/11/23 14:46 Iopamidol-370 (76%);100ml Bottle IV 12/11/23 14:45 100 ml ONCE ONE Administration Sodium Chloride 50 ml 12/11/23 14:35 0.9 % Sodium Chloride 50 Ml Vial IV 12/11/23 14:36 ONCE ONE Sodium Chloride 10 ml 12/11/23 14:35 Sodium Chloride 0.9% 10ml Syr (Rad Only) IV 12/11/23 14:36 ONCE ONE ORDERS Category Date Time Status CT angio abdomen pelvis Stat Cat Scan 12/11/23 14:05 Completed CBC w/Auto Diff [Complete Blood Count Auto Diff] Stat Lab 12/11/23 13:15 Completed CMP [Comprehensive Metabolic Panel] Stat Lab 12/11/23 13:15 Completed Occult Blood,Stool Stat Lab 12/11/23 14:06 Completed PT INR [Prothrombin Time INR] Stat Lab 12/11/23 13:15 Completed UA [Urinalysis and Microscopic] Stat Lab 12/11/23 15:54 Completed Medical Decision Narrative: In summary patient is a 77-year-old female with past medical history described above who presents emergency department for evaluation of painless rectal bleeding. Patient is hemodynamically stable nontoxic-appearing upon arrival, afebrile. Differential diagnosis includes internal hemorrhoids, diverticulosis, malignancy, among others. Workup will be conducted with hematologic labs, CTA abdomen and pelvis. Initial workup reviewed by me, hematologic labs are nonactionable, no CECY or critical electrolyte abnormalities, stable mild hyperbilirubinemia, hemoglobin is 16.4. Stool occult blood is negative however patient did not have any stool or blood in her rectal vault so I would expect this. Glascow Blatchford bleeding score low risk. CTA conducted and pending at time of transfer of care to the oncoming physician, Dr. Pérez. <Ruslan Pérez MD - Last Filed: 12/11/23 16:52> Vital Signs: 12/11/23 13:16 12/11/23 13:30 12/11/23 14:00 Temperature 97.9 F Temperature Source Oral Pulse Rate 67 73 Pulse Rate [Right] 78 Respiratory Rate 20 18 Blood Pressure 153/79 H 150/79 H Blood Pressure [Right Arm] 178/93 H Blood Pressure Mean 103 98 Blood Pressure Mean [Right Arm] 121 02 Sat by Pulse Oximetry 96 97 96 Oxygen Delivery Method Room Air 12/11/23 15:00 12/11/23 15:30 12/11/23 16:00 Temperature Temperature Source Pulse Rate 64 67 69 Pulse Rate [Right] Respiratory Rate 18 18 18 Blood Pressure 163/81 H 161/79 H 161/76 H Blood Pressure [Right Arm] Blood Pressure Mean 100 101 93 Blood Pressure Mean [Right Arm] 02 Sat by Pulse Oximetry 99 99 98 Oxygen Delivery Method Lab Data Lab Results 12/11/23 13:15: WBC 10.3, RBC 5.02, Hgb 16.4 H, Hct 50.2 H, MCV 100.0 H, MCH 32.7 H, MCHC 32.7, RDW 13.3, Plt Count 199, MPV 9.7, Neut % (Auto) 83.1 H, Lymph % (Auto) 8.6 L, [place] % (Auto) 7.4, Eos % (Auto) 0.0 L, Baso % (Auto) 0.8, Neut # (Auto) 8.5 H, Lymph # (Auto) 0.9, [place] # (Auto) 0.8, Eos # (Auto) 0.0, Baso # (Auto) 0.1, PT 10.9, INR 1.01, Sodium 140, Potassium 3.5, Chloride 105, Carbon Dioxide 29, Anion Gap 9.5, BUN 14, Creatinine 0.60, Estimated Creat Clear 51, Estimated GFR 97, Est GFR ( Amer) 118, Glucose 114 H, Calcium 11.7 H, Total Bilirubin 1.5 H, AST 33, ALT 27, Alkaline Phosphatase 99, Total Protein 7.8, Albumin 4.6, Globulin 3.2, Albumin/Globulin Ratio 1.4 12/11/23 14:06: Stool Occult Blood Negative 12/11/23 15:54: Urine Color Yellow, Urine Appearance Clear, Urine pH 7.5, Ur Specific [place] 1.010, Urine Protein Negative, Urine Glucose (UA) Negative, Urine Ketones Negative, Urine Blood Negative, Urine Nitrate Negative, Urine Bilirubin Negative, Urine Urobilinogen 0.2, Ur Leukocyte Esterase Negative, Urine RBC None, Urine WBC None, Ur Squamous Epith Cells Occasional, Urine Bacteria None Orders (Tests/Meds): ED MEDICATIONS Discontinued Medications Generic Name Dose Route Start Last Admin Trade Name Freq PRN Reason Stop Dose Admin Iopamidol 75 ml 12/11/23 14:35 Iopamidol-370 (76%);100ml Bottle IV 12/11/23 14:36 ONCE ONE Iopamidol 100 ml 12/11/23 14:44 12/11/23 14:46 Iopamidol-370 (76%);100ml Bottle IV 12/11/23 14:45 100 ml ONCE ONE Administration Sodium Chloride 50 ml 12/11/23 14:35 0.9 % Sodium Chloride 50 Ml Vial IV 12/11/23 14:36 ONCE ONE Sodium Chloride 10 ml 12/11/23 14:35 Sodium Chloride 0.9% 10ml Syr (Rad Only) IV 12/11/23 14:36 ONCE ONE ORDERS Category Date Time Status CT angio abdomen pelvis Stat Cat Scan 12/11/23 14:05 Completed CBC w/Auto Diff [Complete Blood Count Auto Diff] Stat Lab 12/11/23 13:15 Completed CMP [Comprehensive Metabolic Panel] Stat Lab 12/11/23 13:15 Completed Occult Blood,Stool Stat Lab 12/11/23 14:06 Completed PT INR [Prothrombin Time INR] Stat Lab 12/11/23 13:15 Completed UA [Urinalysis and Microscopic] Stat Lab 12/11/23 15:54 Completed Medical Decision Narrative: In summary patient is a 77-year-old female with past medical history described above who presents emergency department for evaluation of painless rectal bleeding. Patient is hemodynamically stable nontoxic-appearing upon arrival, afebrile. Differential diagnosis includes internal hemorrhoids, diverticulosis, malignancy, among others. Workup will be conducted with hematologic labs, CTA abdomen and pelvis. Initial workup reviewed by me, hematologic labs are nonactionable, no CECY or critical electrolyte abnormalities, stable mild hyperbilirubinemia, hemoglobin is 16.4. Stool occult blood is negative however patient did not have any stool or blood in her rectal vault so I would expect this. Glascow [place] bleeding score low risk. CTA conducted and pending at time of transfer of care to the oncoming physician, Dr. Pérez. Elisa: I assumed primary responsibility for this patient after signout from previous physician. Independent interpretation of workup demonstrated leukocytosis 25 hemoglobin 16.4, platelets normal at 199, no leukocytosis. Coags negative. Chemistry nonactionable. BUN normal. Occult stool negative. CT a of the abdomen pelvis demonstrated abnormal mucosal enhancement in the rectum, this was discussed with radiologist on-call who read the CT. Less likely to be rectal bleed in the setting of occult stool negative, no acute bloody bowel movement here in the emergency department, and negative rectal exam from previous physician. Patient does have diffuse descending colitis, but no evidence of vascular abnormality associated. On my evaluation of patient, patient resting comfortably, no complaints at this time, feeling better. Abundance of reassurance was given. It was recommended that patient follow-up with her family doctor regarding this visit to the emergency department. She has never had a colonoscopy, she was recommended that she talk to family doctor about scheduling colonoscopy. Return precautions were discussed. Because patient at baseline without signs or symptoms of clinical decompensation, deemed appropriate for discharge. Results were relayed to patient who voiced understanding and were agreeable to outpatient management and follow up. I discussed my clinical impression with patient and answered all questions. At this time, the evidence for any other entities in the differential is insufficient to warrant any further testing or ED observation. This was explained as well. Advisory was given that persistent or worsening symptoms require further evaluation. I confirmed the understanding of this discussion.. Critical Care <Clyde Flynn MD - Last Filed: 12/11/23 14:48> Critical Care Time Critical Care Time: No
[2023-12-11 14:19] LABS: Chloride 105 mmol/L (98-107); Potassium 3.5 mmoL/L (3.5-5.1); Sodium 140 mmol/L (136-145)
[2023-12-11 14:21] LABS: Alanine Aminotransferase 27 U/L (12-78); Aspartate Amino Transferase 33 U/L (14-36); Blood Urea Nitrogen 14 mg/dl (7-17); Creatinine Clearance Estimated 51 mL/min (50-200); Estimated Glomerular Filt Rate 97 ml/min (>60); GFR (African American) 118 ML/MIN (>60)
[2023-12-11 14:22] LABS: Albumin Level 4.6 g/dl (3.5-5.0); Albumin/Globulin Ratio 1.4 (1.1-1.8); Alkaline Phosphatase 99 U/L (38-126); Anion Gap 9.5 mEq/L (5-15); Bilirubin,Total 1.5 mg/dl (0.2-1.3); Calcium 11.7 mg/dl (8.4-10.2); Carbon Dioxide 29 mmol/L (22.0-30.0); Globulin 3.2 g/dL (1.3-3.2); Glucose 114 mg/dl (74-100); Total Protein,Serum 7.8 g/dl (6.3-8.2)
[2023-12-11 14:25] LABS: INR 1.01 (0.9-1.1); Prothrombin Time 10.9 seconds (10.1-12.5)
[2023-12-11 14:30] LABS: Occult Blood,Stool Negative (Negative)
[2023-12-11 14:31] LABS: Basophils # 0.1 K/mm3 (0-0.2); Basophils % 0.8 % (0.1-2.0); Hematocrit 50.2 % (37.0-47.0); Hemoglobin 16.4 g/dL (12.2-16.2); Lymphocytes # 0.9 K/mm3 (0.7-4.5); Lymphocytes % 8.6 % (10-50); Mean Corpuscular HGB Conc 32.7 g/dL (31.8-35.4); Mean Corpuscular Hemoglobin 32.7 pg (27.0-31.2); Mean Platelet Volume 9.7 fl (7.4-10.4); Monocytes # 0.8 K/mm3 (0.1-1.0); Monocytes % 7.4 % (1.7-9.3); Neutrophils # 8.5 K/mm3 (1.8-7.8); Neutrophils % 83.1 % (37.0-80.0); Platelet Count 199 K/mm3 (142-424); Red Blood Count 5.02 M/mm3 (4.20-5.40); Red Cell Distribution Width 13.3 % (11.5-17.5); White Blood Count 10.3 K/mm3 (4.8-10.8)
--- NOTE | 2023-12-11 14:39 | PC.NURSE ---
Pt returned from RAD
[2023-12-11] MEDS: IOPAMIDOL-370 (76%);100ML BOTTLE 100 ML IV (14:46)
[2023-12-11 15:56] LABS: Microscopic, Urine URINE MICROSCOPIC (MICROSCOPIC)
[2023-12-11 16:01] LABS: Appearance,Urine CLEAR (Clear); Bilirubin,Urine Negative (Negative); Blood, Urine Negative (Negative); Color,Urine YELLOW (Yellow); Glucose,Urine (UA) Negative (Negative); Ketones,Urine Negative (Negative); Leukocyte Esterase,Urine Negative (Negative); Nitrate,Urine Negative (Negative); PH,Urine 7.5 (5.0-8.5); Protein,Urine Negative (Negative); Urobilinogen,Urine 0.2 EU/dl (0.2)
--- NOTE | 2023-12-11 16:15 | PC.NURSE ---
Dr. Pérez speaking with [facility]
[2023-12-11 16:20] LABS: Squamous Epithelial Cell,Urine Occasional #/hpf (0-5)
--- NOTE | 2023-12-11 16:38 | PC.NURSE ---
Dr. Pérez at BS to update pt/family on results and POC
== END 2023-12-11 17:00 | disposition home or self-care (01) ==
PROVIDERS: Emergency Medicine; Emergency Provider Emergency Medicine; PCP Family Medicine
DX: K92.1 Melena (principal); K52.9 Noninfective gastroenteritis and colitis, unspecified; K57.90 Diverticulosis of intestine, part unspecified, without perforation or abscess without bleeding; I10 Essential (primary) hypertension; E78.5 Hyperlipidemia, unspecified
CPT/HCPCS: 74174; 80053; 81001; 82272; 85025; 85610; 99284; G0328; Q9967

== ENCOUNTER 2025-05-27 11:03 | Emergency (ER) | payer MEDICARE, SELFPAY ==
[2025-05-27 11:09] VITALS: BP 181/78; PULSE 73; O2SAT 98
[2025-05-27 11:11] VITALS: BP 180/78; PULSE 64; RESP 15; TEMP 36.9; O2SAT 99; BMI 23.2
[2025-05-27 11:30] VITALS: BP 169/86; PULSE 63; O2SAT 98
--- NOTE | 2025-05-27 11:42 | ED_ITS ---
Discharge Plan Disposition Patient Disposition: Home, Self-Care Prescriptions Prescriptions: New epinephrine [EpiPen 2-Niko] 0.3 mg/0.3 mL auto-injector 0.3 mg IM Q10M PRN (Reason: anaphylaxis) Qty: 2 0RF Rx Instructions: for 2 doses metoprolol succinate 50 mg tablet extended release 24 hr 50 mg PO DAILY Qty: 5 0RF Discontinued amlodipine 5 MG tablet 5 mg PO DAILY No Action peg 3350-electrolytes [GaviLyte-G] 236-22.74-6.74 -5.86 gram recon soln 240 ml PO Q10M Qty: 4000 0RF Rx Instructions: follow mailed instructions atorvastatin 10 MG tablet 10 mg PO HS cholecalciferol (vitamin D3) 1,000 UNIT capsule 1,000 unit PO DAILY Referrals Follow up/Referrals: Charli Olivares MD [Primary Care Provider, Medical] - See instructions Activity Restrictions/Add. Instructions Additional Instructions/Restrictions: At this time it was felt you are safe to be discharged home. If new or worsening symptoms please do not hesitate to return the emergency department. Please take your antibiotics for as prescribed on the off chance that this is an early infection. Please use your EpiPen as prescribed, take cetirizine daily which you can buy [id number] and follow-up with Dr. Olivares midweek as we discussed. Reasons to use your EpiPen include hives plus shortness of breath, hives plus vomiting, throat closing, vomiting and wheezing after exposure to known allergen. Please stop taking your amlodipine immediately. Start taking your metoprolol as prescribed. I have written you a short course of metoprolol, please follow-up with Dr. Olivares this week to see if he wants to continue it. Clinical Impressions Clinical Impression: Angioedema Instructions Patient Instructions: DI for Skin Abscess Print Language Print Language: Somali Discharge ED Provider: Clyde Flynn General Adult HPI General Chief complaint: Skin/Abscess/Foreign Body Stated complaint: right side jaw swollen Time Seen by Provider: 05/27/25 11:04 Mode of Arrival: Ambulatory Source of Information: Patient and Relative Description of Symptoms (Recalled from ER Triage Doc. by RN): pt has r sided lower facial swelling along with swelling in her lips. states it started last night. no neew medications. got stung by a wasp last week but denies anything else. History of Present Illness HPI narrative: Patient is a 79-year-old female with past medical history of hypertension on amlodipine, hyperlipidemia on atorvastatin no recent medication changes, previous allergic reactions with hives and poor tolerance of steroids which causes chest pain and other unknown side effects who presents emergency department for evaluation of lip swelling. Onset was acute, overnight patient awoke with lip swelling and right cheek swelling adjacent to the lip, no new drugs no new exposures no trauma no other acute complaints at this time. Patient went to walk-in clinic who referred her here for continued evaluation. Patient does not have any known EpiPen's at home. Of note patient was stung by a insect approximately a week ago on her left forearm which has largely resolved except for a small nodule on her dorsal forearm. Please note that above description of symptoms, in this electronic medical record under categorization of recalled from ER triage doctor by RN are reflective of an initial nursing assessment, however, is not reflective of my full history and physical exam that was personally taken and clarified. Consequentially, this preceding description of symptoms, which may include the patient's categorized chief complaint in the EMR, do not reflect my personal c linical impression, and the ultimate description of history of present illness and patient stated complaints should be deferred to this section of the note. Unless stated otherwise or congruent with this section of the note, additional signs, symptoms, or incongruence should be interpreted as inaccurate with my clinical impression. Related Data Home Medications ?Medication ?Instructions ?Recorded ?Confirmed atorvastatin 10 mg tablet 10 mg PO HS Cholesterol 04/0605/27/25 cholecalciferol (vitamin D3) 25 1,000 unit PO DAILY Mack pplement 04/15/20 05/27/25 mcg (1,000 unit) capsule Previous Rx's ?Medication ?Instructions ?Recorded peg 3350-electrolytes 236 240 ml PO Q10M #4,000 mL gram-22.74 gram-6.74 gram-5.86 gram solution (GaviLyte-G) epinephrine 0.3 mg/0.3 mL 0.3 mg (0.3 mL) IM Q10M PRN 05/27/25 injection, auto-injector (EpiPen anaphylaxis #2 ea 2-Niko) metoprolol succinate 50 mg 50 mg PO DAILY HTN #5 tabs 05/27/25 tablet,extended release 24 hr Allergies Allergy/AdvReac Type Severity Reaction Status Date / Time benazepril (BENAZEPRIL) Allergy Unknown angioedema Verified 05/27/25 10:21 Corticosteroids AdvReac Unknown Verified 05/27/25 10:48 (Glucocorticoids) [facility] Disclaimer: The information contained in this section may have been updated after the patient was seen, as this information can be updated by other users. Medical History Chest discomfort Bee sting Social History Smoking Status: Never smoker alcohol intake: never substance use type: denies use current occupational status: retired Travel in the last 8 weeks?: None household members: spouse and children housing: house current occupational exposures/hazards: No caffeine: Yes Have you lived/traveled outside [place] in past 30 days?: No Contact w/someone who lives/traveled outside [place] past 30 days?: No Exposure to someone with infectious disease in past 14 days?: No Do you have a fever (greater than 100.4 F or 38 C)?: No Have you tested positive for COVID-19?: No Exposed to someone with COVID-19 in past 14 days?: No Do you have a sore throat?: No Do you have a cough?: No Do you have any weakness?: No Do you have any diarrhea?: No Are you experiencing any unusual bleeding?: No Do you have any muscle aches/pain?: No Do you have any abdominal pain?: No Are you experiencing loss of taste or smell?: No Other Medical History Have you received the Flu Vaccine for this season: No Have you received the Pneumonia Vaccine: No ROS Obtained: Yes Systems reviewed as appropriate & no additional complaints except as documented Physical Exam General General appearance: alert and in no apparent distress Head Head exam: atraumatic and normocephalic Eye Eye exam: Present PERRL and EOMI ENT ENT exam: Present mucous membranes moist and other (Symmetric bilateral lipedema, mild right cheek swelling adjacent to the lips without fluctuance no overlying erythema. No elevation of the floor the mouth, uvula midline no asymmetric tonsillar swelling.) Neck Neck exam: Present normal inspection Chest Chest inspection: Present normal inspection and symmetric chest wall rise Respiratory Respiratory exam: Present normal lung sounds bilaterally; Absent respiratory distress Cardiovascular Cardiovascular exam: Present regular rate and normal rhythm Abdominal Exam Abdominal exam: Present soft; Absent tenderness Extremities Exam Extremities exam: Present normal inspection and other (Small palpable nodule left dorsal forearm no overlying erythema.) Neurological Exam Neurological exam: Present alert; Absent motor sensory deficit Psychiatric Psychiatric exam: Present normal affect Skin Skin exam: Present warm and dry Medical Decision Making Medical Records Screening: Per USPSTF and CDC recommendations, given the prevalence of disease in our region, it is our hospital?s policy to screen for HIV and viral Hepatitis for all patients aged 18 and over and those with ongoing risk factors. [place]o Inquiry Pt receiving controlled substance: No Vital Signs: 05/27/25 11:09 05/27/25 11:11 05/27/25 11:30 Temperature 98.4 F Temperature Source Oral Pulse Rate 73 63 Pulse Rate [Right] 64 Respiratory Rate 15 Blood Pressure 181/78 H 169/86 H Blood Pressure [Right Arm] 180/78 H Blood Pressure Mean [Right Arm] 112 02 Sat by Pulse Oximetry 98 99 98 Oxygen Delivery Method Room Air 05/27/25 12:00 Temperature Temperature Source Pulse Rate 62 Pulse Rate [Right] Respiratory Rate Blood Pressure 136/77 Blood Pressure [Right Arm] Blood Pressure Mean [Right Arm] 02 Sat by Pulse Oximetry 98 Oxygen Delivery Method Orders (Tests/Meds): ED MEDICATIONS Discontinued Medications Generic Name Dose Route Start Last Admin Trade Name Freq PRN Reason Stop Dose Admin Amoxicillin/Clavulanate Potassium 1 each 05/27/25 11:38 05/27/25 12:01 Amoxicillin/Clavulanate Potassium 875/125mg Tablet PO 05/27/25 11:39 1 each ONCE ONE Administration Loratadine 10 mg 05/27/25 11:39 05/27/25 12:01 Loratadine 10mg Tablet PO 05/27/25 11:40 10 mg ONCE ONE Administration Medical Decision Narrative: In summary patient is a 79-year-old female past medical history described above who presents emergency department for evaluation of lip swelling. Patient is hemodynamically stable nontoxic-appearing upon arrival, afebrile. History and physical consistent with angioedema. Patient will be treated with cetirizine. On the off chance this is a developing infection from a tooth will cover empirically with Augmentin although much less likely in my opinion at this time. No concern with Fermin's based on physical exam no concern for deep space infection of the neck based on physical exam. Patient is protecting her airway no wheezing or stridor no rashes and lip swelling has been persistent throughout the morning is not rapidly progressing. It is possible that her amlodipine is causing her angioedema although a rare side effect and it is not bradykinin mediated. Given this we will defer tranexamic acid at this time. Patient has adverse reaction to steroids and given that it is not rapidly progressing and does not meet criteria for anaphylaxis epinephrine will be deferred, steroids will be deferred and patient undergo a brief period of observation. The patient was placed in observation status at 1145. Medical necessity for observational status is serial physical exams. The patient was provided serial reevaluations while awaiting results. Repeat evaluation patient's superior lip swelling is improving, there is no worsening swelling. Because of this I feel the patient is appropriate for outpatient management at this time. Total time in observation 40 minutes. I had decision making discussion with Dr. Olivares. We will discontinue amlodipine out of an abundance of caution we will switch to metoprolol XL. Critical Care Critical Care Time Critical Care Time: No
[2025-05-27 12:00] VITALS: BP 136/77; PULSE 62; O2SAT 98
[2025-05-27] MEDS: LORATADINE 10MG TABLET 10 MG PO (12:01)
[2025-05-27] MEDS: AMOXICILLIN/CLAVULANATE POTASSIUM 875/125MG TABLET 1 EACH PO (12:01)
[2025-05-27 12:37] VITALS: BP 138/80; PULSE 78; RESP 18; TEMP 36.7; O2SAT 99
== END 2025-05-27 12:38 | disposition home or self-care (01) ==
PROVIDERS: Emergency Provider Emergency Medicine; PCP Family Medicine
DX: T63.461A Toxic effect of venom of wasps, accidental (unintentional), initial encounter (principal); T78.3XXA Angioneurotic edema, initial encounter; E78.5 Hyperlipidemia, unspecified; I10 Essential (primary) hypertension
CPT/HCPCS: 99283; 99285